=== PATIENT | male | born 1975 | race Caucasian/White ===

== ENCOUNTER 2020-09-06 18:57 | Emergency (ER) | payer OTHER, SELFPAY ==
--- NOTE | ~2020-09-06 | XR_ITS ---
XR lumbar spine 2-3V 09/06/2020 19:53 Indication: Back pain Procedure: 3 views lumbar spine Comparison: No prior studies for comparison. Findings: Vertebral body and disc heights are preserved. Mild levocurvature of the lumbar spine. Pedi cles intact. No fracture or traumatic malalignment. Sacral foramen are symmetric. No evidence for spo ndylolisthesis. Impression: 1: No acute abnormality of the lumbar spine. Reviewed, dictated and finalized at location A. Impression: 1: No acute abnormality of the lumbar spine.
[2020-09-06 18:59] VITALS: BP 128/96; PULSE 123; RESP 18; TEMP 36; O2SAT 98
[2020-09-06] MEDS: KETOROLAC 30 MG/ML VIAL (*BKC) IV PUSH (20:05)
[2020-09-06] MEDS: SODIUM CHLORIDE 0.9% IV 1,000 ML 999 ML IV CONT (20:06)
[2020-09-06] MEDS: diazePAM INJ (*CRX) 10 MG/2 ML SYRINGE 5 MG IV PUSH (20:07)
--- NOTE | 2020-09-06 20:45 | ED.BACK ---
HPI - Back Pain/Injury General Chief Complaint: Back Pain/Injury Stated Complaint: Lower Back Pain Time Seen by Provider: 09/06/20 19:31 History of Present Illness HPI Narrative: Patient is a 45-year-old male who presents ER with low back pain. Patient reports pain began several weeks ago when he was lifting his bicycle into his car. He has had persistent pain since then. Earlier in the week he finally went to a chiropractor to receive some adjustments. Reports over the last week his pain had decreased significantly. Tonight patient bent over and had sudden return of pain. Is in the low back near the sacrum and on the left side. No radiation. No numbness or tingling of the groin or the lower extremities. No physical weakness. Has not tried any oral medications as he has GI upset when taking NSAIDs. Denies fevers or chills or sweats. Reports he requires pain relief as he is having difficulty finding a comfortable position. No difficulty with urination or defecation. Related Data Allergies Allergy/AdvReac Type Severity Reaction Status Date / Time No Known Allergies Allergy Mild Verified 03/23/10 07:15 Review of Systems Review of Systems: All systems reviewed & are unremarkable except as noted in HPI and below Constitutional: Constitutional: Denies chills and Denies fever(s) Musculoskeletal: Musculoskeletal: Reports back pain, Denies arthralgias, Denies joint swelling and Denies muscle cramps Neurologic: Denies focal weakness and Denies numbness PMFSH Past Medical History Medical History (Updated 09/06/20 @ 21:24 by Douglas Hartman MD) Pemphigus Surgical History Surgical History (Updated 09/06/20 @ 20:49 by Douglas Hartman MD) No history of previous surgery Social History Social History (Updated 09/06/20 @ 20:49 by Douglas Hartman MD) Smoking status: Never smoker Exam Narrative: Exam Narrative: GENERAL: Uncomfortable-appearing, well-nourished, and in no acute distress. HEAD: Normocephalic, atraumatic. EXTREMITIES: Normal range of motion. No edema. Ambulates well. Back: No midline tenderness of the thoracic spine. There is mild tenderness at L5-S1 moving into the left side. No step-offs or visual evidence of trauma. No palpable spasm. No tenderness in the glutes. SKIN: Warm, dry, no rash. NEURO: Alert and oriented x3. PSYCH: Normal mood and affect. Course Course Emergency Course: Patient with 4/10 pain after Toradol/Valium/IV fluid. Informed of x-ray results. Discharge home with Medrol Dosepak as well as tizanidine. Will give lifting restriction. Recommend follow-up with primary care as if discomfort persists she may require MRI. Patient verbalized understanding of treatment plan. Vital Signs Vital signs: Vital Signs Temperature 96.8 F L 09/06/20 18:59 Pulse Rate 123 H 09/06/20 18:59 Respiratory Rate 18 09/06/20 18:59 Blood Pressure 128/96 H 09/06/20 18:59 Pulse Oximetry 98 09/06/20 18:59 Temperature 96.8 F L 09/06/20 18:59 Pulse Rate 123 H 09/06/20 18:59 Respiratory Rate 18 09/06/20 18:59 Blood Pressure 128/96 H 09/06/20 18:59 Pulse Oximetry 98 09/06/20 18:59 MDM - Back Pain/Injury Imaging Data Radiologist's impression: ITS Impressions Lumbar Spine X-Ray 09/06/20 19:56 Impression: 1: No acute abnormality of the lumbar spine. Discharge Plan Discharge Clinical Impression: Low back strain Patient Disposition: Home, Self-Care Condition: Stable Instructions: Low Back Strain (ED), Lower Back Exercises (ED) Additional Instructions: Return to the ER if you have increased pain in your back, you develop lower extremity weakness/numbness/paralysis, you have numbness or tingling in your private parts, or you are unable to control your ability to urinate/stool. Your pain is not improving you may require an MRI of the spine to ensure you do not have a disc issue. Prescriptions: New methylprednisolone 4 mg tablets,do
[2020-09-06 21:35] VITALS: BP 142/76; PULSE 84; RESP 16; O2SAT 98
== END 2020-09-06 21:36 | disposition home or self-care (01) ==
PROVIDERS: Emergency Provider Emergency Medicine
DX: S39.012A Strain of muscle, fascia and tendon of lower back, initial encounter (principal); X50.0XXA Overexertion from strenuous movement or load, initial encounter
CPT/HCPCS: 72100; 96374; 96375; 99284; J1885; J3360; J7030

== ENCOUNTER 2023-06-09 10:17 | Emergency (ER) | payer BC, SELFPAY ==
[2023-06-09 10:18] VITALS: BP 157/83; PULSE 77; RESP 18; TEMP 36.5; O2SAT 99
--- NOTE | 2023-06-09 11:18 | ED.BACK ---
HPI - Back Pain/Injury General Chief Complaint: Back Pain/Injury Stated Complaint: back pain Time Seen by Provider: 06/09/23 10:24 History of Present Illness HPI Narrative: Patient is a 47-year-old male who presents ER with back pain. Ongoing over last 5 days. Left-sided and does down left leg. No saddle anesthesia or difficulty with urination/defecation. Reports no fevers or chills or sweats. Reports he has been a bit more active and has been playing pickleball. Otherwise no inciting injury. Pain is worse today while at work so came here. Related Data Allergies Allergy/AdvReac Type Severity Reaction Status Date / Time No Known Allergies Allergy Mild Verified 06/09/23 10:25 Review of Systems Review of Systems: All systems reviewed & are unremarkable except as noted in HPI and below Constitutional: Constitutional: Reports no additional constitutional complaints Genitourinary: Genitourinary: Reports no additional male genitourinary complaints Musculoskeletal: Musculoskeletal: Reports back pain, Denies arthralgias and Denies joint swelling Integumentary/Breasts: Skin/Breast: Reports system reviewed and no additional complaints, except as docu Neurologic: Reports system reviewed and no additional complaints, except as documented PMFSH Past Medical History Medical History (Updated 06/09/23 @ 11:18 by Douglas Hartman MD) Pemphigus Surgical History Surgical History (Updated 09/06/20 @ 20:49 by Douglas Hartman MD) No history of previous surgery Social History Social History (Updated 09/06/20 @ 20:49 by Douglas Hartman MD) Smoking status: Never smoker Exam Narrative: GENERAL: Well-appearing, well-nourished, and in no acute distress. HEAD: Normocephalic, atraumatic. CHEST: Clear to auscultation. No respiratory distress. HEART: Regular rate and rhythm. Normal peripheral pulses. back: No reproducible midline tenderness at T/L-spine. There is mild discomfort in left SI region. EXTREMITIES: Normal range of motion. No edema. SKIN: Warm, dry, no rash. NEURO: Alert and oriented x3. PSYCH: Normal mood and affect. Course Course Emergency Course: Toradol for pain here. Conservative treatment for home with Medrol Dosepak and cyclobenzaprine. No acute injury so x-ray not ordered. Recommend follow-up with PCP. Vital Signs Vital signs: Vital Signs Temperature 97.7 F 06/09/23 10:18 Pulse Rate 77 06/09/23 10:18 Respiratory Rate 18 06/09/23 10:18 Blood Pressure 157/83 H 06/09/23 10:18 Pulse Oximetry 99 06/09/23 10:18 Oxygen Delivery Room Air 06/09/23 10:18 Temperature 97.7 F 06/09/23 10:18 Pulse Rate 77 06/09/23 10:18 Respiratory Rate 18 06/09/23 10:18 Blood Pressure 157/83 H 06/09/23 10:18 Pulse Oximetry 99 06/09/23 10:18 Oxygen Delivery Room Air 06/09/23 10:18 Discharge Plan Discharge Clinical Impression: Sciatica Patient Disposition: Home, Self-Care Condition: Stable Instructions: Sciatica (ED) Additional Instructions: Please return to the emergency department if you develop severe pain that is not controlled by pain medications or if you are unable to walk because of pain or weakness. Return to the emergency department immediately if you develop fevers, loss of bowel or bladder control (dribbling of urine or having accidents you wouldn't normally have), inability to urinate, numbness of your genital or anal area, or weakness/numbness of your legs or arms as these could all be signs of a serious medical emergency. Prescriptions: New cyclobenzaprine 10 mg tablet 10 mg PO TID PRN (Reason: muscle spasm) Qty: 20 0RF methylprednisolone [Medrol (Jose Enrique)] 4 mg tablets,dose pack See Rx Instructions .ROUTE .COMPLEX Qty: 21 0RF Rx Instructions: orally per package directions Follow-up/Referrals: Esau Stanton MD [Physician] - 1 Week UNKNOWN,DOCTOR [Primary Care Provider] - 1 Week
[2023-06-09] MEDS: KETOROLAC (*BKC) 60 MG/2 ML VIAL IM (11:19)
== END 2023-06-09 11:40 | disposition home or self-care (01) ==
PROVIDERS: Emergency Provider Emergency Medicine
DX: M54.42 Lumbago with sciatica, left side (principal)
CPT/HCPCS: 96372; 99283; J1885

== ENCOUNTER 2025-01-04 12:45 | Emergency (ER) | payer BC, SELFPAY ==
[2025-01-04] VITALS (16 sets, daily range): BP systolic 127–197; BP diastolic 72–98; PULSE 88–120; RESP 12–24; TEMP 36.7; O2SAT 97–100
--- NOTE | ~2025-01-04 | XR_ITS ---
CHEST RADIOGRAPH, PA AND LATERAL CLINICAL HISTORY: DIZZY X YESTERDAY . COMPARISON: None available TECHNIQUE: PA and lateral views of the chest. FINDINGS The cardiomediastinal silhouette is unremarkable. The lungs are clear. IMPRESSION: No focal infiltrate or effusion. Reviewed, dictated and finalized at location A.
--- OUTSIDE RECORDS SUMMARY | 2025-01-04 12:48 | XMS_ITS | Clinical Summary ---
Author Organization [facility] Address [address] [place] [address] Phone Care Team Providers [facility] Name Role Phone Olvin Sutton MD Primary Care Provider Allergies No known active allergies Medications clobetasoL (TEMOVATE) 0.05 % cream Apply 0.05 application (deactivated) topically as needed 01/10/20 22 Active mupirocin (BACTROBAN) 2 % ointment 01/10/20 22 Active cyclobenzapri ne (FLEXERIL) 10 mg tabletIndicat ions:Acute left-sided low back pain with left-sided sciatica,Left leg weakness Take 1 tablet (10 mg total) by mouth 3 (three) times a day as needed for muscle spasms 45 tablet 1 06/16/19 24 Active valACYclovir (VALTREX) 1 gram tabletIndicat ions:Herpes simplex infection of penis Take 1 tablet (1,000 mg total) by mouth 2 (two) times a day as needed (HSV flares.) Take for 7-10 days per episode 20 tablet 10/04/19 25 Active olmesartan (BENICAR) 40 mg tabletIndicat ions:Hyperten michelle, essential Take 0.5 tablets (20 mg total) by mouth daily 01/02/20 25 026 Active naproxen (NAPROSYN) 500 mg tabletIndicat ions:Pain Take 1 tablet (500 mg total) by mouth 2 (two) times a day as needed for pain (pain) . Take with food 60 tablet 1 01/02/20 25 Active naproxen (NAPROSYN) 500 mg tabletIndicat ions:Acute left-sided low back pain with left-sided sciatica,Left leg weakness Take 1 tablet (500 mg total) by mouth 2 (two) times a day as needed for pain (pain) . Take with food 60 tablet 1 12/23/19 24 025 Discontinued(Re order) olmesartan (BENICAR) 40 mg tabletIndicat ions:Hyperten michelle, essential Take 0.5-1 tablets (20-40 mg total) by mouth daily 90 tablet 3 12/03/19 25 025 Discontinued Active Problems Problem Noted Date Diagnosed Date Mixed dyslipidemia 12/03/2024 Assessment & Plan (01/01/2025 5:12 PM CDT): Assessment & Plan (12/03/2024 1:40 AM CDT): - new, noted on lab work obtained as shown below - no prior labs to compare to so will need to repeat this in 3-6 months to see if persistent - first line would be limiting processed food intake and following a low fat diet - recheck labs, order placed Lab Results Component Value Date CHOL 247 (H) 11/15/2024 Lab Results Component Value Date HDL 39 (L) 11/15/2024 Lab Results Component Value Date LDLCALC 176 (H) 11/15/2024 Lab Results Component Value Date TRIG 171 (H) 11/15/2024 Impaired glucose metabolism 12/03/2024 Assessment & Plan (12/03/2024 1:41 AM CDT): - new, noted on lab work obtained - A1c 5.8 on 11/2024 - will continue to monitor Lab Results Component Value Date HGBA1C 5.8 (H) 11/15/2024 Elevated serum creatinine 12/03/2024 Assessment & Plan (12/03/2024 1:44 AM CDT): - noted on fasting lab test - will repeat this on non-fasting test on future visit - but no prior lab to compare to for baseline - diagnosed with hypertension, starting treatment for hypertension - minimized use of NSAIDs Lab Results Component Value Date CREATININE 1.36 (H) 11/15/2024 Genital herpes simplex 11/15/2024 Assessment & Plan (11/15/2024 1:01 PM CDT): Genital herpes with subtle flare-ups. Uses valacyclovir as needed, which resolves symptoms within a few days. Current flare-up is mild and being managed with medication. - Continue using valacyclovir as needed for flare-ups - Positive HSV PCR Penile 11/2023 Preventative health care 11/15/2024 Assessment & Plan (12/03/2024 1:46 AM CDT): - New or chronic worsening conditions: hypertension, mixed dyslipidemia, impaired glycose metabolism, elevated creatinine - Mental health: no significant psychiatric/mental health conditions affecting her day to day functioning - Dental health: Recommend regular dental care and cleaning. Discussed importance of regular tooth brushing, flossing, and dental visits. - Nutrition: Recommend moderation in sodium/caffeine intake, saturated fat and cholesterol, caloric balance, sufficient intake of fresh fruits, vegetables - Exercise: Recommend to exercise at least 30 minutes moderate to vigorous exercise most days of the week. (minimum 150 minutes weekly) - Immunizations: Age and sex appropriate immunizations reviewed and offered - Prostate cancer screening: Recommended, order placed - Colon cancer screening: Recommended, discussed options, Cologuard kit ordered for patient - Lung cancer screening: not indicated No results found for: PSA Hypertension, essential 11/15/2024 Assessment & Plan (01/01/2025 5:12 PM CDT): Orders: olmesartan (BENICAR) 40 mg tablet; Take 0.5 tablets (20 mg total) by mouth daily CBC without differential; Future Comprehensive metabolic panel; Future Assessment & Plan (11/15/2024 12:56 PM CDT): BP Readings from Last 3 Encounters: 11/15/24 162/92 11/30/23 138/80 08/11/23 128/76 Blood pressure readings have been borderline high, with today's reading at 154/92 mmHg. Family history of hypertension and cardiac issues. No symptoms such as headaches or vision changes reported. Decision made to start antihypertensive medication due to persistent elevated readings. Olmesartan chosen for its favorable profile in not affecting electrolytes and having a longer half-life. - Start olmesartan for blood pressure management - Obtain a blood pressure cuff for home monitoring - Monitor blood pressure at home aiming for systolic 120-130 mmHg and diastolic 70-80 mmHg - Follow up in 3-4 months to assess blood pressure control Folliculitis 11/15/2024 Assessment & Plan (11/15/2024 12:57 PM CDT): Folliculitis on legs with scarring. Managed with mupirocin and benzoyl peroxide as needed. No significant current flare-up reported. 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 Currently well-controlled with clobetasol ointment used as needed. No recent significant flare-ups reported. - Continue using clobetasol ointment as needed for flare-ups - Follows with dermatology - [facility] Chronic left-sided low back pain Overview (11/15/2024): 2020 - after lifting bike into car Assessment & Plan (01/01/2025 5:12 PM CDT): Chronic left-sided lower back pain, initially caused by lifting a bike frame four years ago. Pain is aggravated by lifting heavy objects and relieved by stretching and physical activity such as playing pickleball. Uses naproxen and muscle relaxants as needed for flare-ups. Pain is manageable with current regimen. - Continue using naproxen and muscle relaxants as needed for pain management - Encourage regular stretching and physical activity to prevent muscle tightness - refill provided for Naproxen 500 mg PRN, uses is infrequently Orders: naproxen (NAPROSYN) 500 mg tablet; Take 1 tablet (500 mg total) by mouth 2 (two) times a day as needed for pain (pain) . Take with food Assessment & Plan (11/15/2024 12:57 PM CDT): Chronic left-sided lower back pain, initially caused by lifting a bike frame four years ago. Pain is aggravated by lifting heavy objects and relieved by stretching and physical activity such as playing pickleball. Uses naproxen and muscle relaxants as needed for flare-ups. Pain is manageable with current regimen. - Continue using naproxen and muscle relaxants as needed for pain management - Encourage regular stretching and physical activity to prevent muscle tightness Encounters Date Type Department Care Team Description 01/01/2025 10:25 AM CDT Lab [address] [address] Hypertension, essential; Fatigue, unspecified type 01/01/2025 9:30 AM CDT Office Visit [facility] Primary Care at [address] [phone] Olvin Sutton MD Fatigue, unspecified type (Primary Dx); Hypertension, essential; Acute cough; Mixed dyslipidemia; Chronic left-sided low back pain, unspecified whether sciatica present; Screen for colon cancer; PHOEBE (acute kidney injury) 01/01/2025 Results Follow-Up [facility] Primary Care at [address] [phone] Olvin Sutton MD Comprehensive metabolic panel, CBC without differential, eGFR 11/19/2024 Results Follow-Up [facility] Primary Care at [address] [phone] Olvin Sutton MD CBC without differential, Hemoglobin A1c, Thyroid Function [place], Additional followed-up results: 8 11/15/2024 12:[address] [facility] Medical [facility] Outpatient Lab at [address] [phone] 11/15/2024 12:09 PM CDT - 11/15/2024 11:59 PM CDT Hospital Encounter [address] [address] Preventative health care; Need for hepatitis B screening test; Encounter for hepatitis C screening test for low risk patient Discharge Disposition: Discharge to home or self care 11/15/2024 11:15 AM CDT Office Visit [facility] Primary Care at [address] [address] Olvin Sutton MD Preventative health care (Primary Dx); Hypertension, essential; Pemphigus foliaceus (HCC); Genital herpes simplex, unspecified site; Encounter for hepatitis C screening test for low risk patient; Need for hepatitis B screening test; Colon cancer screening; Folliculitis; Mixed dyslipidemia; Impaired glucose metabolism; Elevated serum creatinine from Last 3 Months Immunizations Immunization Administration Dates Next Due Influenza, Quadrivalent, Spl it, Preservative Free, Intramuscular 07/03/2019,05/26/2013 Influenza, Trivalent, IM (MDV) 05/15/2014 Influenza, Trivalent, Preser vative Free, Intramuscular 06/22/2024,04/27/2017 Influenza, Unspecified 01/01/2025(Deferr ed: Patient Refused),05/16/2023(Deferred: Patient Refused),05/16/2022(Deferred: Patient Refused) Tdap 08/11/2023 Surgical History Surgery Date Site/Laterality Comments WISDOM TOOTH EXTRACTION Medical History Medical History Date Comments Back pain 2020 - after lif ting bike into car Pemphigus foliaceous (HCC) 2011 Cellulitis of lower extremities 02/04 -- was taking Abx -- bactrim x 10 days - and topical mupirocin Family History Medical History Relation Name Comments Hypertension Brother Back Pain Father Coronary artery disease Father Diabetes Father Kidney disease Father Colon cancer Neg Hx Prostate cancer Neg Hx Relation Name Status Comments Brother Father Mother Alive Social History Tobacco Use Types Packs/Day Years Used Date Smoking Tobacco: Never Smokeless Tobacco: Never AUDIT-C Answer Date Recorded Q1: How often do you have a drink containing alc ohol? Monthly or less 11/30/2023 Q2: How many drinks containi ng alcohol do you have on a typical day when you are drinking? 1 or 2 11/30/2023 Q3: How often do you have si x or more drinks on one occasion? Less than monthly 11/30/2023 PHQ-2 Answer Date Recorded PHQ-2 Total Score (If total score is 3 or more points, staff should administer the PHQ-9) 0 01/01/2025 Sex and Gender Information Value Date Recorded Sex Assigned at Not on file Legal Sex Male 3:39 PM CDT Gender Identity Not on file Sexual Orientation Not on file Obstetrics History Last Filed Vital Signs Vital Sign Reading Time Taken Comments Blood Pressure 120/74 01/01/2025 9:40 AM CDT Pulse 76 01/01/2025 9:40 AM CDT Temperature 36.7 C (98.1 F) 01/01/2025 9:40 AM CDT Respiratory Rate 18 11/30/2023 3:33 PM CDT Oxygen Saturation 98% 01/01/2025 9:40 AM CDT Inhaled Oxygen Concentration - - Weight 80.5 kg (177 lb 6.4 oz) 01/01/2025 9:40 A M CDT Height 182.9 cm (6') 01/01/2025 9:40 AM CDT Body Mass Index 24.06 01/01/2025 9:40 AM CDT Plan of Treatment Health Maintenance Due Date Last Done Comments Colon Cancer Screening-DNA Stool 1975 Zoster Vaccine (1 of 2) 07/23/2023 Covid-19 Vaccine ( season) 2024 05/11/2021, 09/01/2020, 08/10/2020 Influenza Vaccine (#1) 2025 , 07/03/2019, 04/27/2017, Additional history exists Regular Well Visit/Exam 18-64 11/15/2025 11/15/2024, 04/13/2022 Depression Screening 01/01/2026 01/01/2025, 11/15/2024, 08/11/2023, Additional history exists Prostate Cancer Screening-PSA 11/15/2026 11/15/2024 DTaP/Tdap/Td Vaccine (2 - Td or Tdap) 08/10/2033 08/11/2023 Hepatitis B Screening Completed 11/15/2024 Hepatitis C Screening Completed 11/15/2024 Pneumococcal vaccine <65 Aged Out No longer eligible based on patient's age to complete this topic Procedures Procedure Name Priority Date/Time Associated Diagnosis Comments EGFR Routine 01/01/2025 10:27 AM CDT Hypertension, essential Fatigue, unspecified type CBC WITHOUT DIFFERENTIAL Routine 01/01/2025 10:27 AM CDT Hypertension, essential Fatigue, unspecified type COMPREHENSIVE METABOLIC PANEL Routine 01/01/2025 10:27 AM CDT Hypertension, essential Fatigue, unspecified type EGFR Routine 11/15/2024 12:09 PM CDT Preventative health care COMPREHENSIVE METABOLIC PANEL Routine 11/15/2024 12:09 PM CDT Preventative health care LIPID PANEL Routine 11/15/2024 12:09 PM CDT Preventative health care PSA SCREEN Routine 11/15/2024 12:09 PM CDT Preventative health care THYROID FUNCTION CASCADE Routine 11/15/2024 12:09 PM CDT Preventative health care HEMOGLOBIN A1C Routine 11/15/2024 12:09 PM CDT Preventative health care CBC WITHOUT DIFFERENTIAL Routine 11/15/2024 12:09 PM CDT Preventative health care HEPATITIS C ANTIBODY Routine 11/15/2024 12:09 PM CDT Encounter for hepatitis C screening test for low risk patient HEPATITIS B CORE ANTIBODY, TOTAL Routine 11/15/2024 12:09 PM CDT Need for hepatitis B screening test HEPATITIS B SURFACE ANTIBODY (IMMUNE STATUS) Routine 11/15/2024 12:09 PM CDT Need for hepatitis B screening test HEPATITIS B SURFACE ANTIGEN Routine 11/15/2024 12:09 PM CDT Need for hepatitis B screening test from Last 3 Months Results * (ABNORMAL) eGFR (01/01/2025 10:27 AM CDT) eGFR 47(L) >=60 mL/min/1. 73 m2 Comment: Interpretive Data Reference Interval Normal >/= 90 mL/min/1.73m2 Mildly decreased* 60 - 89 mL/min/1.73m2 Mildly to moderately decreased 45 - 59 mL/min/1.73m2 Moderately to severely decreased 30 - 44 mL/min/1.73m2 Severely decreased 15 - 29 mL/min/1.73m2 Kidney Failure < 15 mL/min/1.73m2 *Relative to young adult level Estimated glomerular filtration rate is determined by the 2020 CKD-EPI equation recommended by the National Kidney Foundation (A Unifying Approach to GFR Estimation: Recommendations of the NKF-ASK Task Force on Reassessing the Inclusion of Race in Diagnosing Kidney Disease, JASN 2020). The CKD-EPI equation should not be used for patients with unstable renal function and has not been validated in children and those over 70. Current interpretive data was last reviewed 2021. Blood 01/01/2025 10:2 7 AM CDT 01/01/2025 1:46 PM CDT us Olvin Sutton MD LAB BLOOD ORDERABLES Fi nal Result [facility] [address] Department [place] [address] * (ABNORMAL) CBC without differential (01/01/2025 10:27 AM CDT) Pathologist [facility] WBC 10.69(H) 3.80 - 9.90 K/cumm Hgb 14.3 13.0 - 17.5 g/dL [facility] Hct 43.7 38.9 - 50.3 % [facility] Plt 319 150 - 400 K/cumm [facility] MPV 10.0 9.1 - 12.3 fL [facility] RBC 4.64 4.30 - 5.80 M/cumm [facility] MCV 94.2 81.3 - 96.4 fL [facility] MCH 30.8 27.1 - 33.3 pg [facility] MCHC 32.7 32.3 - 35.7 g/dL [facility] RDW CV 12.5 11.1 - 14.9 % [facility] RDW SD 43.5 35.7 - 48.1 fL [facility] NRBC abs 0.00 0.00 - 0.01 K/cumm [facility] Blood 01/01/2025 10:2 7 AM CDT 01/01/2025 1:46 PM CDT us Olvin Sutton MD LAB BLOOD ORDERABLES Fi nal Result [facility] [address] [place] [address] * (ABNORMAL) Comprehensive metabolic panel (01/01/2025 10:27 AM CDT) Sodium 140 135 - 145 mmol/L Potassium, pl 4.7 3.3 - 4.9 mmol/L [facility] Chloride 105 97 - 110 mmol/L [facility] CO2 25 22 - 32 mmol/L [facility] Anion gap 10 2 - 15 mmol/L [facility] BUN 27(H) 6 - 25 mg/dL [facility] Creatinine 1.74(H) 0.80 - 1.30 mg/dL [facility] Glucose 91 70 - 199 mg/dL [facility] Comment: Interpretive Data Fasting glucose >/= 126 mg/dl is diagnostic for diabetes. Fasting is defined as no caloric intake for at least 8 hours. Fasting glucose between 100 mg/dl to 125 mg/dl is diagnostic of prediabetes. In a patient with classic symptoms of hyperglycemia or hyperglycemic crisis, a random glucose >/= 200 mg/dl is diagnostic for diabetes. In the absence of unequivocal hyperglycemia, results should be confirmed by repeat testing. The classification and Diagnosis of Diabetes Diabetes Care 202; 46: S19-S40. Current interpretive data was last revised 2022. Calcium 9.9 8.5 - 10.3 mg/dL [facility] Bilirubin, total 0.2 0.1 - 1.2 mg/dL [facility] Protein, pl 7.9 6.5 - 8.5 g/dL [facility] Albumin 4.6 3.5 - 5.0 g/dL [facility] Alk phos 132(H) 40 - 130 Units/L [facility] ALT 21 7 - 55 Units/L [facility] AST 28 10 - 50 Units/L [facility] Blood 01/01/2025 10:2 7 AM CDT 01/01/2025 1:46 PM CDT Olvin Sutton MD LAB BLOOD ORDERABLES Fi nal Result [facility] [address] [facility] [place] [address] * eGFR (11/15/2024 12:09 PM CDT) eGFR 63 >=60 mL/min/1. 73 m2 Comment: Interpretive Data Reference Interval Normal >/= 90 mL/min/1.73m2 Mildly decreased* 60 - 89 mL/min/1.73m2 Mildly to moderately decreased 45 - 59 mL/min/1.73m2 Moderately to severely decreased 30 - 44 mL/min/1.73m2 Severely decreased 15 - 29 mL/min/1.73m2 Kidney Failure < 15 mL/min/1.73m2 *Relative to young adult level Estimated glomerular filtration rate is determined by the 2020 CKD-EPI equation recommended by the National Kidney Foundation (A Unifying Approach to GFR Estimation: Recommendations of the NKF-ASK Task Force on Reassessing the Inclusion of Race in Diagnosing Kidney Disease, JASN 2020). The CKD-EPI equation should not be used for patients with unstable renal function and has not been validated in children and those over 70. Current interpretive data was last reviewed 2021. Blood 11/15/2024 12:0 9 PM CDT 11/15/2024 8:14 PM CDT Olvin Sutton MD LAB BLOOD ORDERABLES Fi nal Result [facility] [id number] [place] [address] * Thyroid Function [place] (11/15/2024 12:09 PM CDT) TSH 2.50 0.30 - 4.20 mcIUnit/mL Blood 11/15/2024 12:0 9 PM CDT 11/15/2024 7:21 PM CDT Olvin Sutton MD LAB BLOOD ORDERABLES Fi nal Result Performing Organization Address [facility] Phone Number [facility] [phone] [facility] [place] [address] * PSA screen (11/15/2024 12:09 PM CDT) PSA-Total 1.40 <=3.90 ng/mL Comment: Interpretive Data AGE SEX REFERENCE INTERVAL 0 minutes-150 years Female None 0 minutes-49 years Male None 50-59 years Male 0-3.90 60-69 years Male 0-5.40 70-79 years Male 0-6.20 80-150 years Male 0-6.20 The [employer] PSA Total assay procedure was used. Results from different manufacturers or methods may not be comparable. Serial testing should be performed using the same method. Current interpretive data last revised 21. Blood 11/15/2024 12:0 9 PM CDT 11/15/2024 7:21 PM CDT Olvin Sutton MD LAB BLOOD ORDERABLES nal Result Performing Organization Address [facility] de Phone Number [facility] [id number] [facility] [place] [address] * Hepatitis C antibody Blood (11/15/2024 12:09 PM CDT) Hep C Ab Nonreactive Nonreactive Comment: Interpretive Data Nonreactive: Antibodies to HCV not detected. Does NOT exclude the possibility of recent exposure to HCV. Equivocal: Equivocal for HCV antibodies. Supplemental molecular testing will be automatically performed to determine infection status in accordance with current CDC screening recommendations. Reactive: Positive for HCV antibodies. This may represent current or past HCV infection. Supplemental molecular testing will be automatically performed to determine current infection status in accordance with current CDC screening recommendations. Interpretive data was last revised on 2019. Blood 11/15/2024 12:0 9 PM CDT 11/15/2024 7:21 PM CDT Olvin Sutton MD LAB MICROBIOLOGY - GENE RAL ORDERABLES Final Result [facility] [id number] [place] [address] * Hepatitis B core antibody, total Blood (11/15/2024 12:09 PM CDT) Pathologist [facility] Hep B core IgG/IgM Nonreactive Nonreactive Comment:Testing performed by : [facility], [address] [place] [address], [place]., [address] Blood 11/15/2024 12:0 9 PM CDT 11/15/2024 10:16 PM CDT Olvin Sutton MD LAB MICROBIOLOGY - GENE RAL ORDERABLES Final Result Performing Organization Address [facility] Co de Phone Number [facility] [phone] [place] [address] * Hepatitis B surface antibody (immune status) Blood (11/15/2024 12:09 PM CDT) Pathologist [facility] HBsAb (immune status) Nonreactive Comment: Interpretive Data Nonreactive: This result is consistent with a lack of immunity to Hepatitis B Virus when used in the setting of routine screening. Equivocal: The immune status of the individual should be further assessed, if appropriate, after consideration of clinical status, risk factors, and additional diagnostic information. Reactive: This result is consistent with immunity to Hepatitis B Virus when used in the setting of routine screening. Current interpretive data was last revised on 19. Blood 11/15/2024 12:0 9 PM CDT 11/15/2024 7:21 PM CDT Olvin Sutton MD LAB MICROBIOLOGY - GENE RAL ORDERABLES Final Result Performing Organization Address [facility] Co de Phone Number [facility] [phone] [place] [address] * Hepatitis B Surface Antigen Blood (11/15/2024 12:09 PM CDT) Pathologist [facility] HepBsAg Nonreactive Nonreactive Blood 11/15/2024 12:0 9 PM CDT 11/15/2024 7:21 PM CDT Olvin Sutton MD LAB MICROBIOLOGY - GENE RAL ORDERABLES Final Result Performing Organization Address [facility]/ZIP Co de Phone Number [facility] [phone] [facility] [place] [address] * (ABNORMAL) CBC without differential (11/15/2024 12:09 PM CDT) [facility] WBC 9.86 3.80 - 9.90 K/cumm Hgb 14.9 13.0 - 17.5 g/dL [facility] Hct 46.4 38.9 - 50.3 % [facility] Plt 331 150 - 400 K/cumm [facility] MPV 9.8 9.1 - 12.3 fL [facility] RBC 4.82 4.30 - 5.80 M/cumm [facility] MCV 96.3 81.3 - 96.4 fL [facility] MCH 30.9 27.1 - 33.3 pg [facility] MCHC 32.1(L) 32.3 - 35.7 g/dL [facility] RDW CV 13.1 11.1 - 14.9 % [facility] RDW SD 46.5 35.7 - 48.1 fL [facility] NRBC abs 0.00 0.00 - 0.01 K/cumm [facility] Blood 11/15/2024 12:0 9 PM CDT 11/15/2024 7:21 PM CDT Olvin Sutton MD LAB BLOOD ORDERABLES Fi nal Result Performing Organization Address City/[facility]/ZIP Co de Phone Number [facility] [phone] [place] [address] * (ABNORMAL) Hemoglobin A1c (11/15/2024 12:09 PM CDT) Hgb A1C 5.8(H) 4.0 - 5.6 % Estimated Average Glucose 120 mg/dL [facility] Comment: The ADA recommends reporting an estimated Average Glucose (eAG) with all Hemoglobin A1c results using the equation derived from a study of 507 normal and diabetic adults. Minority populations were underrepresented and children were not included. (Diabetes Care 31:6750-2234, 2008). The eAG is not equivalent to a fasting glucose. Blood 11/15/2024 12:0 9 PM CDT 11/15/2024 7:21 PM CDT Olvin Sutton MD LAB BLOOD ORDERABLES Fi nal Result [facility] [id number] [place] [address] * (ABNORMAL) Lipid panel (11/15/2024 12:09 PM CDT) Cholesterol 247(H) 30 - 199 mg/dL Comment: Interpretive Data Ages < or = 19 years Acceptable: <170 mg/dL Borderline high: 170-199 mg/dL High: >or= 200 mg/dL Ages > or = 20 years Desirable: <200 mg/dL Borderline high: 200-239 mg/dL High: >or= 240 mg/dL Literature References: 1. Expert Panel on Integrated Guidelines for Cardiovascular Health and Risk Reduction in Children and Adolescents. Pediatrics 2011;128:S213 2. NCEP Expert Panel. Circulation 2004;110:227 Current Interpretive Data was last revised on 2018. Triglycerides 171(H) <=149 mg/dL MENG RAMON Comment: Interpretive Data Ages < or = 9 years Acceptable: <75 mg/dL Borderline high: 75-99 mg/dL High: >or= 100 mg/dL Ages 10 to 20 years Acceptable: <90 mg/dL Borderline high: 90-129 mg/dL High: >or= 130 mg/dL Ages > or = 20 years Desirable: <150 mg/dL Borderline high: 150-199 mg/dL High: 200-499 mg/dL Very high: >or= 499 mg/dL Literature References: 1. Expert Panel on Integrated Guidelines for Cardiovascular Health and Risk Reduction in Children and Adolescents. Pediatrics 2011;128:S213 2. NCEP Expert Panel. Circulation 2004;110:227 Current Interpretive Data was last revised on 2018. HDL 39(L) >=40 mg/dL MENG RAMON Comment: Interpretive Data Ages < or = 19 years Acceptable: >45 mg/dL Borderline low: 40-45 mg/dL Low: <40 mg/dL Ages > or = 20 years Desirable: >or= 60 mg/dL Low: <40 mg/dL Literature References: 1. Expert Panel on Integrated Guidelines for Cardiovascular Health and Risk Reduction in Children and Adolescents. Pediatrics 2011;128:S213 2. NCEP Expert Panel. Circulation 2004;110:227 Current Interpretive Data was last revised on 2018. LDL, calculated 176(H) <=129 mg/dL MENG RAMON Comment: Interpretive Data Ages < or = 19 years Acceptable: <110 mg/dL Borderline high: 110-129 mg/dL High: >or= 130 mg/dL Ages > or = 20 years Optimal: <100 mg/dL Near optimal: 100-129 mg/dL Borderline high: 130-159 mg/dL High: >160 mg/dL Calculated using the Dangelo LDL-C estimating equation. This equation was implemented on 2024. Prior to this date LDL-C was estimated using the Friedewald equation. Literature References: 1. Expert Panel on Integrated Guidelines for Cardiovascular Health and Risk Reduction in Children and Adolescents. Pediatrics 2011;128:S213 2. NCEP Expert Panel. Circulation 2004;110:227 3. Dangelo Mims et al. SHAINA Cardiol. 2020 September 13;5(5):540-548. doi: 10.1001/jamacardio.2020.0013 Current Interpretive Data was last revised on 2024. Non-HDL Cholesterol 208 mg/dL MENG Comment: Interpretive Data Ages < or = 19 years Acceptable: <120 mg/dL Borderline high: 120-144 mg/dL High: >145 mg/dL Ages > or = 20 years When triglycerides are >200 mg/dL, Non-HDL cholesterol is a secondary target of therapy with treatment goals that are 30 mg/dL greater than the LDL cholesterol target. Literature References: 1. Expert Panel on Integrated Guidelines for Cardiovascular Health and Risk Reduction in Children and Adolescents. Pediatrics 2011;128:S213 2. NCEP Expert Panel. Circulation 2004;110:227 Current Interpretive Data was last revised on 2018. Chol/HDL ratio 6 [facility] Blood 11/15/2024 12:0 9 PM CDT 11/15/2024 7:21 PM CDT Narrative CERN[facility] - 11/15/2024 8:37 PM CDT Has the patient been fasting for 8 hours or more?->No us Olvin Sutton MD LAB [place]LOOD [place] [id number] [address] [place] [address] * (ABNORMAL) Comprehensive metabolic panel (11/15/2024 12:09 PM CDT) Sodium 141 135 - 145 mmol/L Potassium, pl 4.2 3.3 - 4.9 mmol/L [facility] Chloride 107 97 - 110 mmol/L [facility] CO2 22 22 - 32 mmol/L [facility] Anion gap 12 2 - 15 mmol/L [facility] BUN 21 6 - 25 mg/dL [facility] Creatinine 1.36(H) 0.80 - 1.30 mg/dL [facility] Glucose 89 70 - 199 mg/dL [facility]ERN[facility] CH Comment: Interpretive Data Fasting glucose >/= 126 mg/dl is diagnostic for diabetes. Fasting is defined as no caloric intake for at least 8 hours. Fasting glucose between 100 mg/dl to 125 mg/dl is diagnostic of prediabetes. In a patient with classic symptoms of hyperglycemia or hyperglycemic crisis, a random glucose >/= 200 mg/dl is diagnostic for diabetes. In the absence of unequivocal hyperglycemia, results should be confirmed by repeat testing. The classification and Diagnosis of Diabetes Diabetes Care 2021; 46: S19-S40. Current interpretive data was last revised 2022. Calcium 9.9 8.5 - 10.3 mg/dL [facility] Bilirubin, total 0.4 0.1 - 1.2 mg/dL [facility] Protein, pl 8.0 6.5 - 8.5 g/dL [facility] Albumin 4.6 3.5 - 5.0 g/dL [facility] Alk phos 115 40 - 130 Units/L [facility] ALT 18 7 - 55 Units/L [facility] AST 37 10 - 50 Units/L [facility] Blood 11/15/2024 12:0 9 PM CDT 11/15/2024 7:21 PM CDT Olvin Sutton MD [place] [address] [address] [facility] of [facility] [place], [place] [id number] from [place] [address] [employer] [facility] [place] [address] [employer] Care Teams News Internship Relationship Specialty Start Date End Date Olvin Sutton MD [address] [address] PCP - General Family Medicine 11/15/24
--- OUTSIDE RECORDS SUMMARY | 2025-01-04 12:48 | XMS_ITS | Encounter Summary ---
Author Organization [facility] Healthcare Address [address] [place] [address] Care Team Providers Care Freight Conductor Name Role Phone Olvin Sutton MD Primary Care Provider Encounter Details Date Type Department Care Team (Late st Contact Info) Description 11/19/2024 Results Follow-Up [facility] Medical Group Primary Care at [address] [address] Olvin Sutton MD [address] [place] [address] [address] [place] [address] CBC without differential, Hemoglobin A1c, Thyroid Function [place], Additional followed-up results: 8 Social History Tobacco Use Types Packs/Day Years [...] points, staff should administer the PHQ-9) 0 11/15/2024 Sex and Gender Information Value Date Recorded Sex Assigned at Not on file Legal Sex Male 3:39 PM CDT Gender Identity Not on file Sexual Orientation Not on file documented as of this encounter Miscellaneous Notes * Result Encounter Note - Olvin Sutton MD - 12/03/2024 1:58 AM CDT I have sent you the blood pressure medication for better control of the hypertension. Lab work shows normal prostate enzyme level prostate cancer screening, normal thyroid function, electrolytes, blood count without any anemia and no prior exposure to hepatitis-B or C. You do have high cholesterol levels and borderline prediabetes which is very mild but something that needs to be monitored. I do not have any prior lab work to compare to so I would like to repeat the lab test including your cholesterol, average blood sugar in 3-4 months. If you have any recent lab work in the last 1 or 2 yearscan have it sent to my office for my review. Your kidney function is adequate but did show some evidence of mild decrease which could be from the fasting for the blood test so on the next blood work even if your fasting wants to stay hydrated by drinking water. Lab tests ordered for three months from now to check the average blood sugar, cholesterol, kidney function and electrolytes. documented in this encounter Plan of Treatment Not on file documented as of this encounter Visit Diagnoses Not on filedocumented in this encounter Care Teams Freight Conductor Relationship Specialty Start Date End Date Olvin Sutton MD [address] [address] PCP - General Family Medicine 11/15/24 documented as of this encounter
--- OUTSIDE RECORDS SUMMARY | 2025-01-04 12:48 | XMS_ITS | Encounter Summary ---
Author Organization [facility] Healthcare Address [address] [place] [address] Care Team Providers Care Mortgage Loan Underwriter Name Role Phone Olvin Sutton MD Primary Care Provider Encounter Details Date Type Department Care Team (Latest Contact Info) Description 01/01/2025 Results Follow-Up [facility] Medical Group Primary Care at [address] [address] Olvin Sutton MD [address] [place] [address] [address] [place] [address] Comprehensive metabolic panel, CBC without differential, eGFR Social History Tobacco Use Types Packs/Day Years [...] Encounter Note - Olvin Sutton MD - 01/01/2025 5:19 PM CDT Test results is consistent with an acute kidney injury likely secondary to the dehydration event that you had. I want you to drink plenty of fluids and stay hydrated and I would like to repeat this in 2 days to make sure it is getting better. Order placed for repeat BMP in 2 days documented in this encounter Plan of Treatment Not on file documented as of this encounter Visit Diagnoses Not on filedocumented in this encounter Care Teams Mortgage Loan Underwriter Relationship Specialty Start Date End Date Olvin Sutton MD [address] [place] [id number] PCP - General Family Medicine 11/15/24 documented as of this encounter
--- NOTE | 2025-01-04 12:55 | ECG_ITS ---
Test Date: 2025-01-04 12:53:10 Measurements Intervals [place] Rate: 107 P: 72 [place]: 151 QRS: 67 QRSD: 77 T: 42 QT: 334 QTc: 447 Interpretive Statements SINUS TACHYCARDIA POSSIBLE LEFT ATRIAL ENLARGEMENT BASELINE ARTIFACT- I, II, III, AVR, AVL ,AVF, V1-V3 BORDERLINE ECG No previous ECG available for comparison Electronically Signed On 01-04-2025 13:13:20 CDT by Syed Holguin D.O.
--- NOTE | 2025-01-04 13:03 | ED_ITS ---
HPI - Dizziness General Chief Complaint: Dizziness Stated Complaint: dizzy, weak Time Seen by Provider: 01/04/25 12:48 History of Present Illness HPI Narrative: This is a 49-year-old male with history of hypertension who presents to the ED for lightheadedness. 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 He has had no symptoms. He states that earlier this week, he did have flu-like symptoms. Denies fevers, chills, chest pain, shortness of breath, headache, changes in vision. Related Data Allergies Allergy/AdvReac Type Severity Reaction Status Date / Time No Known Allergies Allergy Mild Verified 01/04/25 12:55 Review of Systems 2 Review of Systems: Gen.: Denies fevers or chills Eyes: Denies eye pain or visual change ENT: Denies congestion Respiratory: Denies shortness of breath or cough CV: Denies chest pain or palpitations GI: Denies abdominal pain nausea, emesis or diarrhea denies burning, urgency, frequency or hematuria Musculoskeletal: Denies back pain or muscle pain Neuro: Denies numbness, tingling, weakness or focal weakness Skin: Denies rash Except as documented, all other systems reviewed and negative [facility] Past Medical History Medical History (Updated 01/04/25 @ 18:16 by Rc Vance MD) Pemphigus Surgical History Surgical History (Updated 09/06/20 @ 20:49 by Douglas Hartman MD) No history of previous surgery Social History Social History (Updated 09/06/20 @ 20:49 by Douglas Hartman MD) Smoking status: Never smoker Exam 2 Narrative: APPEARANCE: No acute distress, nontoxic, resting in bed EYES: EOMI. PERRL. No reproducible nystagmus HEENT: Normocephalic, atraumatic, OMM RESPIRATORY: No respiratory distress Clear to auscultation bilaterally with no rhonchi wheezing or rales. CARDIOVASCULAR: Regular rate and rhythm without murmurs rubs or gallops. ABDOMINAL: Soft, nontender, nondistended, no rebound or guarding MUSCULOSKELETAl: Moves all extremities. No clubbing, cyanosis or edema. NEURO: Awake and alert. Following commands, speech normal, no focal deficits SKIN:: Warm, dry. No rashes lesions or abrasions PSYCHIATRIC: Normal affect/mood, Course Vital Signs Vital signs: Vital Signs Temperature 98.1 F 01/04/25 12:51 Pulse Rate 108 H 01/04/25 12:51 Respiratory Rate 16 01/04/25 12:51 Blood Pressure 165/97 H 01/04/25 12:51 Pulse Oximetry 100 01/04/25 12:51 Oxygen Delivery Room Air 01/04/25 12:51 Temperature 98.1 F 01/04/25 12:51 Pulse Rate 88 01/04/25 18:30 Respiratory Rate 22 H 01/04/25 17:33 Blood Pressure 127/88 01/04/25 17:33 Pulse Oximetry 100 01/04/25 17:33 Oxygen Delivery Room Air 01/04/25 12:51 MDM - Dizziness MDM Narrative Medical decision making narrative: 49-year-old male that presented to the ED for lightheadedness. On initial evaluation, patient was anxious, afebrile, tachycardic, otherwise hemodynamically stable. Heart lungs are otherwise clear. Abdomen was soft and nontender. Patient was given 2 L NS for suspected dehydration. He has slight leukocytosis. Mildly elevated creatinine, however better compared to patient's outpatient labs that he had earlier this week. Less likely dehydration/PHOEBE at this point. EKG showed no concerning findings aside from tachycardia. Troponins were negative. Patient was given hydroxyzine for potential anxiety. He had no significant improvement of his heart rate in any meaningful manner. I discussed the case with the hospitalist, given that he was otherwise the symptomatic, we will trial metoprolol IV. On re-evaluation, he had minimal improvement of the symptoms but his heart rate improved the 80s. He will be started on metoprolol 25 mg b.i.d.. He is advised follow-up with his PCP in the next week for evaluation. He was also given referral to Cardiology for further evaluation management. Patient was agreeable to this plan. Given strict return precautions. Medical Records Attestation: I reviewed the patient's medical records. Lab Data Attestation: I reviewed the patient's lab results. 01/04/25 12:58 01/04/25 12:58 Labs: Lab Results 01/04/25 01/04/25 01/04/25 Range/Units 12:58 13:15 16:13 WBC 11.2 H (4.5-10.0) K/mm3 RBC 4.60 (4.6-6.20) M/mm3 Hgb 14.2 (14.0-18.0) g/dL Hct 42.4 (42.0-52.0) % MCV 92.2 (80-100) fl MCH 30.9 (26-34) pg MCHC 33.5 (32-36) g/dl RDW 12.2 (11.5-14.5) % Plt Count 333 (150-375) k/mm3 MPV 9.5 (7.4-10.4) fl Immature Gran % (Auto) 0.5 (0-0.5) % Neut % (Auto) 67.6 (45.5-73.1) % Lymph % (Auto) 20.4 (18.3-44.2) % Fisher % (Auto) 8.9 H (2.6-8.5) % Eos % (Auto) 1.9 (0-4.4) % Baso % (Auto) 0.7 (0.2-1.2) % Lymph # (Auto) 2.29 (0.9-3.2) K/mm3 Fisher # (Auto) 1.0 H (0.1-0.6) K/mm3 Eos # (Auto) 0.2 (0-0.3) K/mm3 Baso # (Auto) 0.1 (0.0-0.1) K/mm3 Abs Immat Gran (auto) 0.06 H (0.00-0.031) K/mm3 Absolute Neuts (auto) 7.6 H (1.3-6.7) K/mm3 Absolute Nucleated RBC 0.000 (0.0-0.012) K/mm3 Nucleated RBC % 0.0 (0.0-0.2) % D-Dimer < 0.27 (<0.48) ug/mL Sodium 133 L (137-145) mmol/L Potassium 4.0 (3.4-5.0) mmol/L Chloride 101 (98-107) mmol/L Carbon Dioxide 18 L (22-30) mmol/L Anion Gap 14 H (4-12) mmol/L BUN 23 H (9-20) mg/dL Creatinine 1.42 H (0.7-1.3) mg/dL Estim Creat Clear Calc 61 ml/min Estimated GFR 53 L (59 - ) Glucose 193 H (65-110) mg/dL Calcium 9.4 (8.4-10.2) mg/dL Total Bilirubin 0.5 (0.2-1.3) mg/dL AST 34 (17-59) U/L ALT 30 (6-50) U/L Alkaline Phosphatase 106 (38-126) U/L Troponin I < 0.012 < 0.012 (0.000-0.034) ng/mL Total Protein 8.0 (6.3-8.2) g/dL Albumin 4.6 (3.5-5.1) g/dL Influenza A (RT-PCR) Negative (Negative) Influenza B (RT-PCR) Negative (Negative) RSV (RT-PCR) Negative (Negative) SARS-CoV-2 RNA (RT-PCR) Negative (Negative) Imaging Data Radiologist's impression: Impressions Chest X-Ray 01/04/25 13:24 IMPRESSION: No focal infiltrate or effusion. ECG Data EKG #1: Attestation: I personally reviewed and interpreted this ECG as follows: ECG completion date: 01/04/25 ECG completion time: 12:53 Prior ECG tracings: not available for review Interpretation: Sinus tachycardia rate of 107, normal axis, normal intervals, no acute ST or T- wave changes Discharge Plan Discharge Clinical Impression: Tachycardia, Light headedness, PHOEBE (acute kidney injury) Patient Disposition: Home Condition: Stable Instructions: Antibiotic Form, Acute Kidney Injury (DC), Tachycardia (ED) Additional Instructions: Unclear what the cause of your symptoms were today. He did have evidence of kidney injury of fluids and improve your heart rate. Other labs were reassuring and showed no evidence of heart damage P this time. You did have a good response to the metoprolol. You were given a prescription for metoprolol, take this as prescribed. Follow-up with your PCP in the next week for evaluation. Number also given a referral to Cardiology, follow up their office in the next week for re-evaluation. Return to the ED for any new or worsening symptoms. Patient Language: Estonian Prescriptions: New metoprolol tartrate 25 mg tablet 25 mg PO BID Qty: 14 0RF No Action cyclobenzaprine 10 mg tablet 10 mg PO TID PRN (Reason: muscle spasm) Qty: 20 0RF methylprednisolone [Medrol (Jose Enrique)] 4 mg tablets,dose pack See Rx Instructions .ROUTE .COMPLEX Qty: 21 0RF Rx Instructions: orally per package directions Follow-up/Referrals: Alyse Duarte DO [Physician, Cardiology] PHYSICIAN NOT ON STAFF,NONSTAFF [Primary Care Provider]
[2025-01-04 13:05] LABS: Hematocrit 42.4 % (42.0-52.0); Hemoglobin 14.2 g/dL (14.0-18.0); Immature Granulocyte Percent A 0.5 % (0-0.5); Lymphocytes Absolute Auto 2.29 K/mm3 (0.9-3.2); Mean Corpuscular HGB Conc 33.5 g/dl (32-36); Mean Corpuscular Hemoglobin 30.9 pg (26-34); Mean Corpuscular Volume 92.2 fl (80-100); Nucleated Red Blood Cells Absolute Auto 0.000 K/mm3 (0.0-0.012); Nucleated Red Blood Cells Perc 0.0 % (0.0-0.2); Platelet Count Result 333 k/mm3 (150-375); Red Blood Count 4.60 M/mm3 (4.6-6.20); White Blood Count 11.2 K/mm3 (4.5-10.0)
[2025-01-04] MEDS: SODIUM CHLORIDE 0.9% IV 1,000 ML 999 ML IV CONT ×2 (13:23→13:59)
[2025-01-04] MEDS: MECLIZINE HCL 25 MG TABLET PO (13:26)
[2025-01-04 13:39] LABS: Alanine Aminotransferase 30 U/L (6-50); Albumin Level 4.6 g/dL (3.5-5.1); Alkaline Phosphatase 106 U/L (38-126); Anion Gap 14 mmol/L (4-12); Aspartate Amino Transferase 34 U/L (17-59); Bilirubin,Total 0.5 mg/dL (0.2-1.3); Blood Urea Nitrogen 23 mg/dL (9-20); Calcium 9.4 mg/dL (8.4-10.2); Carbon Dioxide 18 mmol/L (22-30); Chloride 101 mmol/L (98-107); Estimated CRCL calculation 61 ml/min; Estimated Glomerular Filt Rate 53; Glucose 193 mg/dL (65-110); Potassium 4.0 mmol/L (3.4-5.0); Sodium 133 mmol/L (137-145); Total Protein 8.0 g/dL (6.3-8.2)
[2025-01-04 13:41] LABS: Troponin I < 0.012 ng/mL (0.000-0.034)
[2025-01-04 13:56] LABS: Influenza A QL RT-PCR Negative (Negative); Influenza B QL RT-PCR Negative (Negative); RSV RNA, RT-PCR Negative (Negative); SARS-CoV-2 RNA PCR Negative (Negative)
--- OUTSIDE RECORDS SUMMARY | 2025-01-04 13:58 | XMS_ITS | Encounter Summary ---
Author Organization [facility] Healthcare Address [address] [place] [address] Care Team Providers Care Code Enforcement Inspector Name Role Phone Olvin Sutton MD Primary Care Provider Encounter Details Date Type Department Care Team (Latest Contact Info) Description 01/01/2025 Results Follow-Up [facility] Medical Group Primary Care at [address] [address] Olvin Sutton MD [address] [place] [address] [address] [place] [address] Comprehensive metabolic panel, CBC without [...] on filedocumented in this encounter Care Teams Code Enforcement Inspector Relationship Specialty Start Date End Date Olvin Sutton MD [address] [place] [id number] PCP - General Family Medicine 11/15/24 documented as of this encounter
--- OUTSIDE RECORDS SUMMARY | 2025-01-04 13:58 | XMS_ITS | Encounter Summary ---
Author Organization [facility] Healthcare Address [address] [place] [address] Care Team Providers Care Cone Chocolate Dipper Name Role Phone Olvin Sutton MD Primary Care Provider Encounter Details Date Type Department Care Team (Late st Contact Info) Description 11/19/2024 Results Follow-Up [facility] Medical Group Primary Care at [address] [address] Olvin Sutton MD [address] [place] [address] [address] [place] [address] CBC without differential, Hemoglobin A1c, Thyroid Function [place], Additional followed-up results: 8 Social History Tobacco [...] on filedocumented in this encounter Care Teams Cone Chocolate Dipper Relationship Specialty Start Date End Date Olvin Sutton MD [address] [address] PCP - General Family Medicine 11/15/24 documented as of this encounter
--- OUTSIDE RECORDS SUMMARY | 2025-01-04 13:58 | XMS_ITS | Clinical Summary ---
Author Organization [facility] Address [address] [place] [address] Phone Care Team Providers Care Foam Rubber Fabricator Name Role Phone Olvin Sutton MD Primary [...] Team Description 01/01/2025 10:25 AM CDT Lab [address] [address] Hypertension, essential; Fatigue, unspecified type 01/01/2025 9:30 AM CDT Office Visit [facility] Medical Group Primary Care at [address] [address] Olvin Sutton MD Fatigue, unspecified type (Primary Dx); Hypertension, essential; Acute cough; Mixed dyslipidemia; Chronic left-sided low back pain, unspecified whether sciatica present; Screen for colon cancer; PHOEBE (acute kidney injury) 01/01/2025 Results Follow-Up [facility] Primary Care at [address] [address] Olvin Sutton MD Comprehensive metabolic panel, CBC without differential, eGFR 11/19/2024 Results Follow-Up [facility] Primary Care at [address] [address] Olvin Sutton MD CBC without differential, Hemoglobin A1c, Thyroid Function [place], Additional followed-up results: 8 11/15/2024 12:15 PM CDT Lab [facility] Medical [facility] Outpatient Lab at [address] [address] 11/15/2024 12:09 PM CDT - 11/15/2024 11:59 PM CDT Hospital Encounter [address] [address] Preventative health care; Need for hepatitis B screening test; Encounter for hepatitis C screening test for low risk patient Discharge Disposition: Discharge to home or self care 11/15/2024 11:15 AM CDT Office Visit [facility] Medical Group Primary Care at [address] [address] Olvin Sutton MD Preventative health [...] MD LAB BLOOD ORDERABLES Fi nal Result [facility] [address] [facility] [place] [address] * (ABNORMAL) CBC without differential (01/01/2025 10:27 AM CDT) Pathologist [facility] WBC 10.69(H) 3.80 - 9.90 K/cumm Hgb 14.3 13.0 - 17.5 g/dL [facility] Hct 43.7 38.9 - 50.3 % [facility] Plt 319 150 - 400 K/cumm [facility] MPV 10.0 9.1 - 12.3 fL [facility] RBC 4.64 4.30 - 5.80 M/cumm [facility] MCV 94.2 81.3 - 96.4 fL [facility] MCH 30.8 27.1 - 33.3 pg [facility] MCHC 32.7 32.3 - 35.7 g/dL [facility] RDW CV 12.5 11.1 - 14.9 % [facility] RDW SD 43.5 35.7 - 48.1 fL [facility] NRBC abs 0.00 0.00 - 0.01 K/cumm [facility] Blood 01/01/2025 10:2 7 AM CDT 01/01/2025 1:46 PM CDT us Olvin Sutton MD LAB BLOOD ORDERABLES Fi nal Result [facility] [address] [facility] [place] [address] * (ABNORMAL) Comprehensive metabolic panel (01/01/2025 10:27 AM CDT) Sodium 140 135 - 145 mmol/L Potassium, pl 4.7 3.3 - 4.9 mmol/L [facility] Chloride 105 97 - 110 mmol/L [facility] CO2 25 22 - 32 mmol/L [facility] Anion gap 10 2 - 15 mmol/L [facility] BUN 27(H) 6 - 25 mg/dL [facility] Creatinine 1.74(H) 0.80 - 1.30 mg/dL [facility] Glucose 91 70 - 199 mg/dL [facility] Comment: Interpretive Data Fasting glucose >/= [...] 2022. Calcium 9.9 8.5 - 10.3 mg/dL [facility] Bilirubin, total 0.2 0.1 - 1.2 mg/dL [facility] Protein, pl 7.9 6.5 - 8.5 g/dL [facility] Albumin 4.6 3.5 - 5.0 g/dL [facility] Alk phos 132(H) 40 - 130 Units/L [facility] ALT 21 7 - 55 Units/L [facility] AST 28 10 - 50 Units/L [facility] Blood 01/01/2025 10:2 7 AM CDT 01/01/2025 1:46 PM CDT Olvin Sutton MD LAB BLOOD ORDERABLES Fi nal Result [facility] [address] [facility] [place] [address] * eGFR (11/15/2024 12:09 PM CDT) eGFR [...] LAB BLOOD ORDERABLES Fi nal Result [facility] [address] [place] [address] * Thyroid Function [place] (11/15/2024 12:09 PM CDT) TSH 2.50 0.30 - 4.20 mcIUnit/mL Blood 11/15/2024 12:0 9 PM CDT 11/15/2024 7:21 PM CDT Olvin Sutton MD LAB BLOOD ORDERABLES Fi nal Result Performing Organization Address [facility] Phone Number MENG [address] [facility] [place] [address] * PSA screen (11/15/2024 12:09 PM CDT) [...] BLOOD ORDERABLES nal Result Performing Organization Address [facility] de Phone Number [facility] [address] [facility] [place] [address] * Hepatitis C antibody Blood (11/15/2024 12:09 [...] GENE RAL ORDERABLES Final Result [facility] RAMON [address] [address] Department [place] [employer] [address] * Hepatitis B core antibody, total Blood (11/15/2024 12:09 PM CDT) Pathologist [facility] Hep B core IgG/IgM Nonreactive Nonreactive Comment:Testing performed by : [facility], [address] [place] [address], [place]., [address] Blood 11/15/2024 12:0 9 PM CDT 11/15/2024 10:16 PM CDT Olvin Sutton MD LAB MICROBIOLOGY - GENE RAL ORDERABLES Final Result Performing Organization Address [facility] Co de Phone Number MENG RAMON [address] [address] Department [place] [address] * Hepatitis B surface antibody (immune status) Blood (11/15/2024 12:09 PM CDT) Pathologist [facility] HBsAb (immune status) Nonreactive Comment: Interpretive Data [...] RAL ORDERABLES Final Result Performing Organization Address City/[facility] Co de Phone Number MENG RAMON [address] [address] Department [place] [address] * Hepatitis B Surface Antigen Blood (11/15/2024 12:09 PM CDT) Pathologist [facility] HepBsAg Nonreactive Nonreactive Blood 11/15/2024 12:0 9 PM CDT 11/15/2024 7:21 PM CDT Olvin Sutton MD LAB MICROBIOLOGY - GENE RAL ORDERABLES Final Result Performing Organization Address [facility]/ZIP Co de Phone Number MENG [address] [facility] [place] [address] * (ABNORMAL) CBC without differential (11/15/2024 12:09 PM CDT) [facility] WBC 9.86 3.80 - 9.90 K/cumm Hgb 14.9 13.0 - 17.5 g/dL [facility] Hct 46.4 38.9 - 50.3 % [facility] Plt 331 150 - 400 K/cumm [facility] MPV 9.8 9.1 - 12.3 fL [facility] RBC 4.82 4.30 - 5.80 M/cumm [facility] MCV 96.3 81.3 - 96.4 fL [facility] MCH 30.9 27.1 - 33.3 pg [facility] MCHC 32.1(L) 32.3 - 35.7 g/dL [facility] RDW CV 13.1 11.1 - 14.9 % [facility] RDW SD 46.5 35.7 - 48.1 fL [facility] NRBC abs 0.00 0.00 - 0.01 K/cumm [facility] Blood 11/15/2024 12:0 9 PM CDT 11/15/2024 7:21 PM CDT Olvin Sutton MD LAB BLOOD ORDERABLES Fi nal Result Performing Organization Address City/[facility]/ZIP Co de Phone Number MENG [address] [place] [address] * (ABNORMAL) Hemoglobin A1c (11/15/2024 12:09 PM CDT) Hgb A1C 5.8(H) 4.0 - 5.6 % Estimated Average Glucose 120 mg/dL [facility]ON Comment: The ADA recommends reporting an estimated Average Glucose (eAG) with all Hemoglobin A1c results using the equation derived from a study of 507 normal and diabetic adults. Minority populations were underrepresented and children were not included. (Diabetes Care 31:6850-3647, 2008). The eAG is not equivalent to a fasting glucose. Blood 11/15/2024 12:0 9 PM CDT 11/15/2024 7:21 PM CDT Olvin Sutton MD LAB BLOOD ORDERABLES Fi nal Result [facility] [address] [address] Department [place] [address] * (ABNORMAL) Lipid panel (11/15/2024 12:09 PM [...] BLOOD [place] [address] [address] Department [place] [address] * (ABNORMAL) Comprehensive metabolic panel (11/15/2024 12:09 [...] LAB [place] [address] [address] Department of Laboratories [place], [place] [id number] from Last 3 [place] [address] [employer] [place] [address] [employer] Care Teams Foam Rubber Fabricator Relationship Specialty Start Date End Date Olvin Sutton MD [address] [address] PCP - General Family Medicine 11/15/24
--- NOTE | 2025-01-04 16:06 | ECG_ITS ---
Test Date: 2025-01-04 16:10:31 Measurements Intervals [place] Rate: 115 P: 151 ND: 155 QRS: 142 QRSD: 79 T: -30 QT: 316 QTc: 439 Interpretive Statements SINUS TACHYCARDIA LIMB LEAD REVERSAL LEFT ATRIAL ENLARGEMENT CONSIDER RIGHT VENTRICULAR CONDUCTION DELAY NONSPECIFIC T-WAVE ABNORMALITY- ANT/INF LEADS ABNORMAL ECG Compared to ECG 01/04/2025 12:53:10 HEART RATE HAS INCREASED Electronically Signed On 01-04-2025 17:32:10 CDT by Syed Holguin D.O.
[2025-01-04 16:48] LABS: Troponin I < 0.012 ng/mL (0.000-0.034)
[2025-01-04] MEDS: METOPROLOL TARTRATE INJ 5 MG/5 ML VIAL IV PUSH (18:00)
== END 2025-01-04 18:33 | disposition home or self-care (01) ==
PROVIDERS: Emergency Provider Student in an Organized Health Care Education/Training Program
DX: N17.9 Acute kidney failure, unspecified (principal); R42 Dizziness and giddiness; R00.0 Tachycardia, unspecified; Z20.822 Contact with and (suspected) exposure to COVID-19; R94.31 Abnormal electrocardiogram [ECG] [EKG]
CPT/HCPCS: 36415; 71046; 80053; 84484; 85025; 85380; 87637; 93005; 96361; 96374; 99284; A9270; J0616; J7030

== ENCOUNTER 2025-01-08 11:07 | Emergency (ER) | payer BC, SELFPAY ==
[2025-01-08 11:11] VITALS: BP 181/118; PULSE 102; RESP 18; TEMP 36.4; O2SAT 100
--- NOTE | 2025-01-08 11:14 | ECG_ITS ---
Test Date: 2025-01-08 11:17:28 Measurements Intervals [place] Rate: 99 P: 77 MS: 148 QRS: 85 QRSD: 86 T: 19 QT: 344 QTc: 442 Interpretive Statements SINUS RHYTHM MINIMAL Q WAVES- INFERIOR LEADS NONSPECIFIC T-WAVE ABNORMALITY- INFERIOR LEADS BASELINE ARTIFACT- I, AVR, AVL BORDERLINE ECG Compared to ECG 01/04/2025 16:10:31 HEART RATE HAS DECREASED Electronically Signed On 01-08-2025 11:24:54 CDT by Syed Holguin D.O.
--- OUTSIDE RECORDS SUMMARY | 2025-01-08 11:36 | XMS_ITS | Encounter Summary ---
Author Organization [facility] Healthcare Address [address] [place] [address] Care Team Providers Care Plug Machine Operator Name Role Phone Olvin Sutton MD Primary Care Provider Encounter Details Date Type Department Care Team (Latest Contact Info) Description 01/01/2025 Results Follow-Up [facility] Medical Group Primary Care at [address] [address] Olvin Sutton MD [address] [place] [address] [address] [place] [address] Comprehensive metabolic panel, CBC without [...] on filedocumented in this encounter Care Teams Plug Machine Operator Relationship Specialty Start Date End Date Olvin Sutton MD [address] [place] [address] PCP - General Family Medicine 11/15/24 documented as of this encounter
--- OUTSIDE RECORDS SUMMARY | 2025-01-08 11:36 | XMS_ITS | Encounter Summary ---
Author Organization [facility] Healthcare Address [address] [place] [address] Care Team Providers Care Control Room Supervisor Name Role Phone Olvin Sutton MD Primary Care Provider Encounter Details Date Type Department Care Team (Late st Contact Info) Description 11/19/2024 Results Follow-Up [facility] Medical Group Primary Care at [address] [address] Olvin Sutton MD [address] [place] [address] [address] [place] [address] CBC without differential, Hemoglobin A1c, Thyroid Function [place], Additional followed-up results: 8 Social History Tobacco [...] on filedocumented in this encounter Care Teams Control Room Supervisor Relationship Specialty Start Date End Date Olvin Sutton MD [address] [address] PCP - General Family Medicine 11/15/24 documented as of this encounter
--- OUTSIDE RECORDS SUMMARY | 2025-01-08 11:36 | XMS_ITS | Clinical Summary ---
Author Organization [facility] Address [address] [place] [address] Phone Care Team Providers Care Cold Meat Chef Name Role Phone Olvin Sutton MD Primary [...] Encounters Date Type Department Care Team Description 01/07/2025 Telephone [facility] Medical [facility] Primary Care at [address] [phone] Olvin Sutton MD 01/01/2025 10:25 AM CDT Lab [address] [address] Hypertension, essential; Fatigue, unspecified type 01/01/2025 9:30 AM CDT Office Visit [facility] Primary Care at [address] [phone] Olvin Sutton MD Fatigue, unspecified type (Primary Dx); Hypertension, essential; Acute cough; Mixed dyslipidemia; Chronic left-sided low back pain, unspecified whether sciatica present; Screen for colon cancer; PHOEBE (acute kidney injury) 01/01/2025 Results Follow-Up [facility] Primary Care at [address] [phone] Olvin Sutton MD Comprehensive metabolic panel, CBC without differential, eGFR 11/19/2024 Results Follow-Up [facility] Primary Care at [address] [address] Olvin Sutton MD CBC without differential, Hemoglobin A1c, Thyroid Function [place], Additional followed-up results: 8 11/15/2024 12:15 PM CDT Lab [facility] Outpatient Lab at [address] [phone] 11/15/2024 12:09 PM CDT - 11/15/2024 11:59 PM [place] [address] Preventative health care; Need for hepatitis B screening test; Encounter for hepatitis C screening test for low risk patient Discharge Disposition: Discharge to home or self care 11/15/2024 11:15 AM CDT Office Visit [facility] Medical Group Primary Care at [address] [address] Olvin Sutton MD Preventative health [...] MD LAB BLOOD ORDERABLES Fi nal Result [facility] [address] [facility] Department [place] [address] * (ABNORMAL) CBC without differential (01/01/2025 10:27 AM CDT) Pathologist [facility] WBC 10.69(H) 3.80 - 9.90 K/cumm Hgb 14.3 13.0 - 17.5 g/dL [facility] Hct 43.7 38.9 - 50.3 % [facility] Plt 319 150 - 400 K/cumm [facility] MPV 10.0 9.1 - 12.3 fL [facility] RBC 4.64 4.30 - 5.80 M/cumm [facility] MCV 94.2 81.3 - 96.4 fL [facility] MCH 30.8 27.1 - 33.3 pg [facility] MCHC 32.7 32.3 - 35.7 g/dL [facility] RDW CV 12.5 11.1 - 14.9 % [facility] RDW SD 43.5 35.7 - 48.1 fL [facility] NRBC abs 0.00 0.00 - 0.01 K/cumm [facility] Blood 01/01/2025 10:2 7 AM CDT 01/01/2025 1:46 PM CDT us Olvin Sutton MD LAB BLOOD ORDERABLES Fi nal Result [facility] [address] [facility] [place] [address] * (ABNORMAL) Comprehensive metabolic panel (01/01/2025 10:27 AM CDT) Sodium 140 135 - 145 mmol/L Potassium, pl 4.7 3.3 - 4.9 mmol/L [facility] Chloride 105 97 - 110 mmol/L [facility] CO2 25 22 - 32 mmol/L [facility] Anion gap 10 2 - 15 mmol/L [facility] BUN 27(H) 6 - 25 mg/dL [facility] Creatinine 1.74(H) 0.80 - 1.30 mg/dL [facility] Glucose 91 70 - 199 mg/dL [facility] Comment: Interpretive Data Fasting glucose >/= 126 [...] 2022. Calcium 9.9 8.5 - 10.3 mg/dL [facility] Bilirubin, total 0.2 0.1 - 1.2 mg/dL [facility] Protein, pl 7.9 6.5 - 8.5 g/dL [facility] Albumin 4.6 3.5 - 5.0 g/dL [facility] Alk phos 132(H) 40 - 130 Units/L [facility] ALT 21 7 - 55 Units/L [facility] AST 28 10 - 50 Units/L [facility] Blood 01/01/2025 10:2 7 AM CDT 01/01/2025 1:46 PM CDT Olvin Sutton MD LAB BLOOD ORDERABLES Fi nal Result [facility] [address] [facility] [place] [address] * eGFR (11/15/2024 12:09 PM CDT) eGFR [...] MD LAB BLOOD ORDERABLES Fi nal Result [facility] [address] [address] [place] [address] * Thyroid Function [place] (11/15/2024 12:09 PM CDT) [facility] TSH 2.50 0.30 - 4.20 mcIUnit/mL Blood 11/15/2024 12:0 9 PM CDT 11/15/2024 7:21 PM CDT Olvin Sutton MD LAB BLOOD ORDERABLES Fi nal Result Performing Organization Address [facility] de Phone Number [facility] [place] [address] [address] [place] [address] * PSA screen (11/15/2024 12:09 PM CDT) [facility] PSA-Total 1.40 <=3.90 ng/mL Comment: Interpretive Data [...] BLOOD ORDERABLES nal Result Performing Organization Address [facility] [place] [address] [address] [place] [address] * Hepatitis C antibody Blood (11/15/2024 12:09 PM CDT) [facility] Hep C Ab Nonreactive Nonreactive Comment: Interpretive [...] RAL ORDERABLES Final Result Performing Organization Address [facility] Co de Phone Number MENG RAMON [address] [address] [place] [address] * Hepatitis B core antibody, total Blood (11/15/2024 12:09 PM CDT) Pathologist [facility] Hep B core IgG/IgM Nonreactive Nonreactive Comment:Testing performed by : [facility], [address] [place]., [address] Blood 11/15/2024 12:0 9 PM CDT 11/15/2024 10:16 PM CDT Olvin Sutton MD LAB MICROBIOLOGY - GENE [facility] ORDERABLES Final Result Performing Organization Address [facility] de Phone Number MEGN RAMON [address] [address] [place] [address] * Hepatitis B surface antibody (immune status) Blood (11/15/2024 12:09 PM CDT) Pathologist [facility] HBsAb (immune status) Nonreactive Comment: [...] RAL ORDERABLES Final Result Performing Organization Address City/[facility]/ZIP Co de Phone Number MENG RAMON [address] [address] [facility] [place] [address] * Hepatitis B Surface Antigen Blood (11/15/2024 12:09 PM CDT) Pathologist [facility] HepBsAg Nonreactive Nonreactive Blood 11/15/2024 12:0 9 PM CDT 11/15/2024 7:21 PM CDT Olvin Sutton MD LAB MICROBIOLOGY - GENE RAL ORDERABLES Final Result Performing Organization Address [facility] Co de Phone Number MENG RAMON [address] [address] [facility] [place] [address] * (ABNORMAL) CBC without differential (11/15/2024 12:09 PM CDT) [facility] WBC 9.86 3.80 - 9.90 K/cumm Hgb 14.9 13.0 - 17.5 g/dL [facility] Hct 46.4 38.9 - 50.3 % [facility] Plt 331 150 - 400 K/cumm [facility] MPV 9.8 9.1 - 12.3 fL [facility] RBC 4.82 4.30 - 5.80 M/cumm [facility] MCV 96.3 81.3 - 96.4 fL [facility] MCH 30.9 27.1 - 33.3 pg [facility] MCHC 32.1(L) 32.3 - 35.7 g/dL [facility] RDW CV 13.1 11.1 - 14.9 % [facility] RDW SD 46.5 35.7 - 48.1 fL [facility] NRBC abs 0.00 0.00 - 0.01 K/cumm [facility] Blood 11/15/2024 12:0 9 PM CDT 11/15/2024 7:21 PM CDT Olvin Sutton MD LAB BLOOD ORDERABLES Fi nal Result Performing Organization Address City/[facility] de Phone Number MENG [address] [address] [place] [address] * (ABNORMAL) Hemoglobin A1c (11/15/2024 12:09 PM CDT) Hgb A1C 5.8(H) 4.0 - 5.6 % Estimated Average Glucose 120 mg/dL [facility]ON Comment: The ADA recommends reporting an estimated Average Glucose (eAG) with all Hemoglobin A1c results using the equation derived from a study of 507 normal and diabetic adults. Minority populations were underrepresented and children were not included. (Diabetes Care 31:7623-2512, 2008). The eAG is not equivalent to a fasting glucose. Blood 11/15/2024 12:0 9 PM CDT 11/15/2024 7:21 PM CDT Olvin Sutton MD LAB BLOOD ORDERABLES starr Result Performing Organization Address [facility] de Phone Number MENG RAMON [address] [address] [place] [address] * (ABNORMAL) Lipid panel (11/15/2024 12:09 PM [...] on 2018. HDL 39(L) >=40 mg/dL [facility] Comment: Interpretive Data Ages < [...] 2018. LDL, calculated 176(H) <=129 mg/dL [facility] Comment: Interpretive Data Ages < [...] NCEP Expert Panel. Circulation 2004;110:227 3. Dangelo Black al. SHAINA Cardiol. 2020 September 13;5(5):540-548. doi: [...] been fasting for 8 hours or more?->No Olvin Sutton MD LAB BLOOD ORDERABLES Fi nal Result [facility] [address] [address] [place] [address] * (ABNORMAL) Comprehensive metabolic panel (11/15/2024 12:09 [...] 9 PM CDT 11/15/2024 7:21 PM CDT us Olvin Sutton MD LAB [place]LOOD [place] [address] [address] Department [place] [address] from Last [place] [address] [place] [address] [place] [address] [employer] Care Teams Cold Meat Chef Relationship Specialty Start Date End Date Olvin Sutton MD [address] [facility] [address] [place] [address] PCP - General Family Medicine 11/15/24
--- OUTSIDE RECORDS SUMMARY | 2025-01-08 11:36 | XMS_ITS | Encounter Summary ---
Author Organization [facility] Healthcare Address [address] [place] [address] Care Team Providers Care Bleach Analyst Name Role Phone Olvin Sutton MD Primary Care Provider Encounter Details Date Type Department Care Team (Late st Contact Info) Description 01/07/2025 Telephone [facility] Primary Care at [address] [phone] Olvin Sutton MD [address] [place] [address] [address] [place] [address] Social History Tobacco Use Types Packs/Day Years [...] as of this encounter Miscellaneous Notes * Telephone Encounter - Meghna Quiros MA - 01/07/2025 9:47 AM CDT Call Back Caller???s Concern: Appt made for 01/09 Does message need to be routed? No * Telephone Encounter - Raj Ramon CNA - 01/07/2025 7:16 AM CDT LVM for patient to call back and schedule a [facility] ER on 01/04/2025 and referral toa ear mold laboratory technician, preferably Reg Hernandez, or otherwise Alyse Duarte documented in this encounter Plan of Treatment Not on file documented as of this encounter Visit Diagnoses Not on filedocumented in this encounter Care Teams Bleach Analyst Relationship Specialty Start Date End Date Olvin Sutton MD [address] [address] PCP - General Family Medicine 11/15/24 documented as of this encounter
[2025-01-08 11:50] VITALS: BP 133/88; PULSE 75; RESP 25; TEMP 37; O2SAT 100
--- NOTE | 2025-01-08 12:43 | ED.GENADULT ---
HPI - General Adult General Chief complaint: Recheck/Abnormal Lab/Rx Stated complaint: my blood pressure spiked Time Seen by Provider: 01/08/25 12:31 History of Present Illness HPI narrative: 49-year-old male with history of hypertension and tachycardia who presented to the ED for hypertension. Patient states that he was at work when he started feeling ?foggy? and checked his blood pressure and was high. He states that he was not taking his metoprolol as prescribed and he tried taking 1 cassette heart rate started on. His symptoms have improved since then. Denies fevers, chills, chest pain, shortness of breath. His appointment tomorrow with his PCP. Related Data Allergies Allergy/AdvReac Type Severity Reaction Status Date / Time No Known Allergies Allergy Mild Verified 01/04/25 12:55 Review of Systems Review of Systems: Gen.: Denies fevers or chills Eyes: Denies eye pain or visual change ENT: Denies congestion Respiratory: Denies shortness of breath or cough CV: Denies chest pain or palpitations GI: Denies abdominal pain nausea, emesis or diarrhea denies burning, urgency, frequency or hematuria Musculoskeletal: Denies back pain or muscle pain Neuro: Denies numbness, tingling, weakness or focal weakness Skin: Denies rash Except as documented, all other systems reviewed and negative [facility] Past Medical History Medical History Pemphigus Surgical History Surgical History No history of previous surgery Social History Social History Smoking status: Never smoker Exam Narrative: APPEARANCE: No acute distress, nontoxic, resting in bed EYES: EOMI HEENT: Normocephalic, atraumatic, OMM RESPIRATORY: No respiratory distress Clear to auscultation bilaterally with no rhonchi wheezing or rales. CARDIOVASCULAR: Regular rate and rhythm without murmurs rubs or gallops. ABDOMINAL: Soft, nontender, nondistended, no rebound or guarding MUSCULOSKELETAl: Moves all extremities. No clubbing, cyanosis or edema. NEURO: Awake and alert. Following commands, speech normal, no focal deficits SKIN:: Warm, dry. No rashes lesions or abrasions PSYCHIATRIC: Normal affect/mood, Course Vital Signs Vital signs: Vital Signs Temperature 97.5 F L 01/08/25 11:11 Pulse Rate 102 H 01/08/25 11:11 Respiratory Rate 18 01/08/25 11:11 Blood Pressure 181/118 H 01/08/25 11:11 Pulse Oximetry 100 01/08/25 11:11 Oxygen Delivery Room Air 01/08/25 11:11 Temperature 98.6 F 01/08/25 11:50 Pulse Rate 80 01/08/25 14:32 Respiratory Rate 16 01/08/25 14:32 Blood Pressure 127/81 01/08/25 14:32 Pulse Oximetry 97 01/08/25 14:32 Oxygen Delivery Room Air 01/08/25 11:11 Medical Decision Making MDM Narrative Medical decision making narrative: 49-year-old male that presented to the ED for hypertension and brain fog. On initial evaluation, patient was in no acute distress, afebrile and hemodynamically stable. Initial vitals in triage showed mild tachycardia with a rate of 102 with hypertension to 181/118. On my evaluation, his vital signs significantly improved with heart rate in the 70s and blood pressure 130s over 80s. Patient was seen and evaluated for similar symptoms a week ago when he was started on metoprolol. He had not been taking the metoprolol as his symptoms had significantly improved. He did take a dose of metoprolol today after his heart rate began to rise. Suspect that this did help quell his symptoms. Patient did have a leukocytosis of 14.8, however, there is no infectious signs or symptoms at this time so I do not believe there is any additional workup warranted. Patient has appointment tomorrow with his new PCP. He was advised to follow-up with cardiology as previously discussed. Patient and family were agreeable to this plan. Given strict return precautions. Differential Diagnosis Differential Diagnosis: Hypertension, viral syndrome, ACS, arrhythmia, electrolyte abnormality Vital Signs Vital Signs: Vital Signs Temperature 97.5 F L 01/08/25 11:11 Pulse Rate 102 H 01/08/25 11:11 Respiratory Rate 18 01/08/25 11:11 Blood Pressure 181/118 H 01/08/25 11:11 Pulse Oximetry 100 01/08/25 11:11 Oxygen Delivery Room Air 01/08/25 11:11 Temperature 98.6 F 01/08/25 11:50 Pulse Rate 80 08/26/25 14:32 Respiratory Rate 16 01/08/25 14:32 Blood Pressure 127/81 01/08/25 14:32 Pulse Oximetry 97 01/08/25 14:32 Oxygen Delivery Room Air 01/08/25 11:11 Lab Data Lab results reviewed: Yes I reviewed the patient's lab results. 01/08/25 13:25 01/08/25 13:25 Labs: Lab Results 01/08/25 Range/Units 13:25 WBC 14.9 H (4.5-10.0) K/mm3 RBC 4.63 (4.6-6.20) M/mm3 Hgb 14.3 (14.0-18.0) g/dL Hct 42.7 (42.0-52.0) % MCV 92.2 (80-100) fl MCH 30.9 (26-34) pg MCHC 33.5 (32-36) g/dl RDW 12.3 (11.5-14.5) % Plt Count 338 (150-375) k/mm3 MPV 9.4 (7.4-10.4) fl Immature Gran % (Auto) 0.7 H (0-0.5) % Neut % (Auto) 81.6 H (45.5-73.1) % Lymph % (Auto) 9.7 L (18.3-44.2) % Crenshaw % (Auto) 6.6 (2.6-8.5) % Eos % (Auto) 0.9 (0-4.4) % Baso % (Auto) 0.5 (0.2-1.2) % Lymph # (Auto) 1.45 (0.9-3.2) K/mm3 Crenshaw # (Auto) 1.0 H (0.1-0.6) K/mm3 Eos # (Auto) 0.1 (0-0.3) K/mm3 Baso # (Auto) 0.1 (0.0-0.1) K/mm3 Abs Immat Gran (auto) 0.10 H (0.00-0.031) K/mm3 Absolute Neuts (auto) 12.2 H (1.3-6.7) K/mm3 Absolute Nucleated RBC 0.000 (0.0-0.012) K/mm3 Nucleated RBC % 0.0 (0.0-0.2) % Sodium 139 (137-145) mmol/L Potassium 4.8 (3.4-5.0) mmol/L Chloride 105 (98-107) mmol/L Carbon Dioxide 22 (22-30) mmol/L Anion Gap 12 (4-12) mmol/L BUN 25 H (9-20) mg/dL Creatinine 1.50 H (0.7-1.3) mg/dL Estim Creat Clear Calc 58 ml/min Estimated GFR 49 L (59 - ) Glucose 132 H (65-110) mg/dL Calcium 9.8 (8.4-10.2) mg/dL Total Bilirubin 0.5 (0.2-1.3) mg/dL AST 35 (17-59) U/L ALT 27 (6-50) U/L Alkaline Phosphatase 114 (38-126) U/L Troponin I < 0.012 (0.000-0.034) ng/mL Total Protein 8.7 H (6.3-8.2) g/dL Albumin 4.9 (3.5-5.1) g/dL ECG Data EKG #1: Attestation: I personally reviewed and interpreted this ECG as follows: ECG completion date: 01/08/25 ECG completion time: 11:17 Interpretation: Normal sinus rhythm rate of 99, normal axis, normal intervals, nonspecific T-wave change, no acute ST wave changes Discharge Plan Discharge Clinical Impression: Hypertension Patient Disposition: Home Condition: Stable Instructions: Antibiotic Form, Hypertension (ED) Additional Instructions: Continue to take your antihypertensives as prescribed. Continue to follow with PCP tomorrow as scheduled. Continue seek follow-up with cardiology for further evaluation. Return to ED for any new or worsening symptoms. Patient Language: Uzbek Prescriptions: No Action metoprolol tartrate 25 mg tablet 25 mg PO BID Qty: 14 0RF cyclobenzaprine 10 mg tablet 10 mg PO TID PRN (Reason: muscle spasm) Qty: 20 0RF methylprednisolone [Medrol (Jose Enrique)] 4 mg tablets,dose pack See Rx Instructions .ROUTE .COMPLEX Qty: 21 0RF Rx Instructions: orally per package directions Follow-up/Referrals: Herman,Olvin Ryder MD [Primary Care Provider, Unknown]
[2025-01-08 13:30] LABS: Hematocrit 42.7 % (42.0-52.0); Hemoglobin 14.3 g/dL (14.0-18.0); Immature Granulocyte Percent A 0.7 % (0-0.5); Lymphocytes Absolute Auto 1.45 K/mm3 (0.9-3.2); Mean Corpuscular HGB Conc 33.5 g/dl (32-36); Mean Corpuscular Hemoglobin 30.9 pg (26-34); Mean Corpuscular Volume 92.2 fl (80-100); Nucleated Red Blood Cells Absolute Auto 0.000 K/mm3 (0.0-0.012); Nucleated Red Blood Cells Perc 0.0 % (0.0-0.2); Platelet Count Result 338 k/mm3 (150-375); Red Blood Count 4.63 M/mm3 (4.6-6.20); White Blood Count 14.9 K/mm3 (4.5-10.0)
[2025-01-08 13:37] VITALS: BP 124/92; PULSE 78; RESP 17; O2SAT 100
[2025-01-08 13:48] LABS: Alanine Aminotransferase 27 U/L (6-50); Albumin Level 4.9 g/dL (3.5-5.1); Alkaline Phosphatase 114 U/L (38-126); Anion Gap 12 mmol/L (4-12); Aspartate Amino Transferase 35 U/L (17-59); Bilirubin,Total 0.5 mg/dL (0.2-1.3); Blood Urea Nitrogen 25 mg/dL (9-20); Calcium 9.8 mg/dL (8.4-10.2); Carbon Dioxide 22 mmol/L (22-30); Chloride 105 mmol/L (98-107); Estimated CRCL calculation 58 ml/min; Estimated Glomerular Filt Rate 49; Glucose 132 mg/dL (65-110); Potassium 4.8 mmol/L (3.4-5.0); Sodium 139 mmol/L (137-145); Total Protein 8.7 g/dL (6.3-8.2)
[2025-01-08 13:59] LABS: Troponin I < 0.012 ng/mL (0.000-0.034)
--- OUTSIDE RECORDS SUMMARY | 2025-01-08 14:06 | XMS_ITS | Encounter Summary ---
Author Organization [facility] Healthcare Address [address] [place] [address] Care Team Providers Care State Farm Agent Name Role Phone Olvin Sutton MD Primary Care Provider Encounter Details Date Type Department Care Team (Late st Contact Info) Description 01/07/2025 Telephone [facility] Medical Group Primary Care at [address] [phone] Olvin Sutton MD [address] [place] [address] [address] [place] [address] Social History Tobacco Use Types [...] to call back and schedule a [facility] on 01/04/2025 and referral toa old coin dealer, preferably Reg Hernandez, or otherwise Alyse Duarte documented in this encounter Plan of Treatment Not on file documented as of this encounter Visit Diagnoses Not on filedocumented in this encounter Care Teams State Farm Agent Relationship Specialty Start Date End Date Olvin Sutton MD [address] [address] PCP - General Family Medicine 11/15/24 documented as of this encounter
--- OUTSIDE RECORDS SUMMARY | 2025-01-08 14:06 | XMS_ITS | Encounter Summary ---
Author Organization [facility] Healthcare Address [address] [place] [address] Care Team Providers Care Enterprise Systems Administrator Name Role Phone Olvin Sutton MD Primary Care Provider Encounter Details Date Type Department Care Team (Latest Contact Info) Description 01/01/2025 Results Follow-Up [facility] Medical Group Primary Care at [address] [phone] Olvin Sutton MD [address] [place] [address] [address] [place] [address] Comprehensive metabolic panel, CBC without [...] on filedocumented in this encounter Care Teams Enterprise Systems Administrator Relationship Specialty Start Date End Date Olvin Sutton MD [address] [place] [id number] PCP - General Family Medicine 11/15/24 documented as of this encounter
--- OUTSIDE RECORDS SUMMARY | 2025-01-08 14:06 | XMS_ITS | Clinical Summary ---
Author Organization [facility] Address [address] [place] [address] Phone Care Team Providers Care Photo Editor Name Role Phone Olvin Sutton MD Primary [...] Type Department Care Team Description 01/07/2025 Telephone [facility] Medical [facility] Primary Care at [address] [phone] Olvin Sutton MD 01/01/2025 10:25 AM CDT Lab [address] [address] Hypertension, essential; Fatigue, unspecified type 01/01/2025 9:30 AM CDT Office Visit [facility] Primary Care at [address] [phone] Olvin Sutton MD Fatigue, unspecified type (Primary Dx); Hypertension, essential; Acute cough; Mixed dyslipidemia; Chronic left-sided low back pain, unspecified whether sciatica present; Screen for colon cancer; PHOEBE (acute kidney injury) 01/01/2025 Results Follow-Up [facility] Primary Care at [address] [phone] Olvin Sutton MD Comprehensive metabolic panel, CBC without differential, eGFR 11/19/2024 Results Follow-Up [facility] Primary Care at [address] [phone] Olvin Sutton MD CBC without differential, Hemoglobin A1c, Thyroid Function Winkler, Additional followed-up results: 8 11/15/2024 12:15 PM CDT Lab [facility] Outpatient Lab at [address] [phone] 11/15/2024 12:09 PM CDT - 11/15/2024 11:59 PM CDT [place] [address] Preventative health care; Need for hepatitis B screening test; Encounter for hepatitis C screening test for low risk patient Discharge Disposition: Discharge to home or self care 11/15/2024 11:15 AM CDT Office Visit [facility] Medical Group Primary Care at [address] [phone] Olvin Sutton MD Preventative health [...] MD LAB BLOOD ORDERABLES Fi nal Result [facility] [address] [facility] Department [place] [address] * (ABNORMAL) CBC without differential (01/01/2025 10:27 AM CDT) Pathologist [facility] WBC 10.69(H) 3.80 - 9.90 K/cumm Hgb 14.3 13.0 - 17.5 g/dL [facility] Hct 43.7 38.9 - 50.3 % [facility] Plt 319 150 - 400 K/cumm [facility] MPV 10.0 9.1 - 12.3 fL [facility] RBC 4.64 4.30 - 5.80 M/cumm [facility] MCV 94.2 81.3 - 96.4 fL [facility] MCH 30.8 27.1 - 33.3 pg [facility] MCHC 32.7 32.3 - 35.7 g/dL [facility] RDW CV 12.5 11.1 - 14.9 % [facility] RDW SD 43.5 35.7 - 48.1 fL [facility] NRBC abs 0.00 0.00 - 0.01 K/cumm [facility] Blood 01/01/2025 10:2 7 AM CDT 01/01/2025 1:46 PM CDT us Olvin Sutton MD LAB BLOOD ORDERABLES Fi nal Result [facility] [address] [facility] Department [place] [address] * (ABNORMAL) Comprehensive metabolic panel (01/01/2025 10:27 AM CDT) Sodium 140 135 - 145 mmol/L Potassium, pl 4.7 3.3 - 4.9 mmol/L [facility] Chloride 105 97 - 110 mmol/L [facility] CO2 25 22 - 32 mmol/L [facility] Anion gap 10 2 - 15 mmol/L [facility] BUN 27(H) 6 - 25 mg/dL [facility] Creatinine 1.74(H) 0.80 - 1.30 mg/dL [facility] Glucose 91 70 - 199 mg/dL [facility] Comment: Interpretive Data Fasting glucose >/= [...] 2022. Calcium 9.9 8.5 - 10.3 mg/dL [facility] Bilirubin, total 0.2 0.1 - 1.2 mg/dL [facility] Protein, pl 7.9 6.5 - 8.5 g/dL [facility] Albumin 4.6 3.5 - 5.0 g/dL [facility] Alk phos 132(H) 40 - 130 Units/L [facility] ALT 21 7 - 55 Units/L [facility] AST 28 10 - 50 Units/L [facility] Blood 01/01/2025 10:2 7 AM CDT 01/01/2025 1:46 PM CDT Olvin Sutton MD LAB BLOOD ORDERABLES Fi nal Result [facility] [address] [facility] Department [place] [address] * eGFR (11/15/2024 12:09 PM [...] MD LAB BLOOD ORDERABLES Fi nal Result [facility] [address] Department [place] [address] * Thyroid Function Winkler (11/15/2024 12:09 PM CDT) [facility] TSH 2.50 0.30 - 4.20 mcIUnit/mL Blood 11/15/2024 12:0 9 PM CDT 11/15/2024 7:21 PM CDT Olvin Sutton MD LAB BLOOD ORDERABLES Fi nal Result Performing Organization Address [facility] de Phone Number [facility] [address] [address] Department [place] [employer] [place] [address] * PSA screen (11/15/2024 12:09 PM CDT) [facility] PSA-Total 1.40 <=3.90 ng/mL Comment: Interpretive Data [...] ORDERABLES nal Result Performing Organization Address [facility] [place] [address] [address] [place] [address] * Hepatitis C antibody Blood (11/15/2024 12:09 PM CDT) [facility] Hep C Ab Nonreactive Nonreactive Comment: Interpretive [...] ORDERABLES Final Result Performing Organization Address [facility] Co de Phone Number [facility] [address] [address] [place] [place] [address] * Hepatitis B core antibody, total Blood (11/15/2024 12:09 PM CDT) Pathologist [facility] Hep B core IgG/IgM Nonreactive Nonreactive Comment:Testing performed by : [facility], [address] [place]., [address] Blood 11/15/2024 12:0 9 PM CDT 11/15/2024 10:16 PM CDT Olvin Sutton MD LAB MICROBIOLOGY - [facility] ORDERABLES Final Result Performing Organization Address [facility] de Phone Number [facility] [address] [address] [place] [address] * Hepatitis B surface antibody (immune status) Blood (11/15/2024 12:09 PM CDT) Pathologist [facility] HBsAb (immune status) Nonreactive Comment: Interpretive Data [...] RAL ORDERABLES Final Result Performing Organization Address City/[facility]/ZIP Co de Phone Number [facility] [address] [address] [facility] [place] [place] [address] * Hepatitis B Surface Antigen Blood (11/15/2024 12:09 PM CDT) Pathologist [facility] HepBsAg Nonreactive Nonreactive Blood 11/15/2024 12:0 9 PM CDT 11/15/2024 7:21 PM CDT Olvin Sutton MD LAB MICROBIOLOGY - [place] RAL ORDERABLES Final Result Performing Organization Address [facility] Co de Phone Number [facility]ENG RAMON [address] [address] [facility] [place] [employer] [place] [address] * (ABNORMAL) CBC without differential (11/15/2024 12:09 PM CDT) [facility] WBC 9.86 3.80 - 9.90 K/cumm Hgb 14.9 13.0 - 17.5 g/dL [facility] Hct 46.4 38.9 - 50.3 % [facility] Plt 331 150 - 400 K/cumm [facility] MPV 9.8 9.1 - 12.3 fL [facility] RBC 4.82 4.30 - 5.80 M/cumm [facility] MCV 96.3 81.3 - 96.4 fL [facility] MCH 30.9 27.1 - 33.3 pg [facility] MCHC 32.1(L) 32.3 - 35.7 g/dL [facility] RDW CV 13.1 11.1 - 14.9 % [facility] RDW SD 46.5 35.7 - 48.1 fL [facility] NRBC abs 0.00 0.00 - 0.01 K/cumm [facility] Blood 11/15/2024 12:0 9 PM CDT 11/15/2024 7:21 PM CDT Olvin Sutton MD LAB BLOOD ORDERABLES Fi nal Result Performing Organization Address City/[facility] de Phone Number MENG [phone] [address] Department [place] [address] * (ABNORMAL) Hemoglobin A1c (11/15/2024 12:09 PM CDT) Hgb A1C 5.8(H) 4.0 - 5.6 % Estimated Average Glucose 120 mg/dL [facility] Comment: The ADA recommends reporting an estimated Average Glucose (eAG) with all Hemoglobin A1c results using the equation derived from a study of 507 normal and diabetic adults. Minority populations were underrepresented and children were not included. (Diabetes Care 31:6257-8943, 2008). The eAG is not equivalent to a fasting glucose. Blood 11/15/2024 12:0 9 PM CDT 11/15/2024 7:21 PM CDT Olvin Sutton MD LAB BLOOD ORDERABLES starr Result Performing Organization Address [facility] de Phone Number [facility] [address] [address] [place] [address] * (ABNORMAL) Lipid panel (11/15/2024 12:09 PM [...] MD LAB BLOOD ORDERABLES Fi nal Result [facility] [address] [address] Department [place] [address] * (ABNORMAL) Comprehensive metabolic panel (11/15/2024 12:09 [...] BLOOD [place] [address] [address] Department [place] [address] from [place] [address] [place] [address] [place] [address] [place] [address] [employer] Care Teams Photo Editor Relationship Specialty Start Date End Date Olvin Sutton MD [address] [facility] [address] [place] [address] PCP - General Family Medicine 11/15/24
--- OUTSIDE RECORDS SUMMARY | 2025-01-08 14:06 | XMS_ITS | Encounter Summary ---
Author Organization [facility] Healthcare Address [address] [place] [address] Care Team Providers Care Encyclopedia Research Worker Name Role Phone Olvin Sutton MD Primary Care Provider Encounter Details Date Type Department Care Team (Late st Contact Info) Description 11/19/2024 Results Follow-Up [facility] Medical Group Primary Care at [address] [phone] Olvin Sutton MD [address] [place] [address] [address] [place] [address] CBC without differential, Hemoglobin A1c, Thyroid Function Alexander, Additional followed-up results: 8 Social History Tobacco [...] on filedocumented in this encounter Care Teams Encyclopedia Research Worker Relationship Specialty Start Date End Date Olvin Sutton MD [address] [address] PCP - General Family Medicine 11/15/24 documented as of this encounter
[2025-01-08 14:32] VITALS: BP 127/81; PULSE 80; RESP 16; O2SAT 97
== END 2025-01-08 14:35 | disposition home or self-care (01) ==
PROVIDERS: Emergency Provider Student in an Organized Health Care Education/Training Program; PCP Family Medicine
DX: I10 Essential (primary) hypertension (principal)
CPT/HCPCS: 36415; 80053; 84484; 85025; 93005; 99284